=== PATIENT | female | born 1985 | race Caucasian/White ===

== ENCOUNTER 2016-06-29 11:41 | Emergency (ER) | payer MEDICAID, OTHER ==
[2016-06-29] VITALS (8 sets, daily range): BP systolic 116–168; BP diastolic 51–101; PULSE 85–115
--- NOTE | 2016-06-29 12:17 | PD ---
HPI Chief Complaint History of preeclampsia last 2 pregnancies, increased blood pressure Date Seen: Jun 29, 2016 Time Seen: 12:00 Travel History International Travel<30 Days: No Contact w/Intl Traveler<30Days: No Known Affected Area: No History of Present Illness HPI 30-year-old 0-3 at 24 weeks and 1 day of gestation, EDC 10/18/16, patient presents to OB ED from 's office for evaluation of increased blood pressure. Patient stated that she has history of preeclampsia in the last 2 pregnancies. Blood pressure in OB ED is 122/80, 128/88. Patient denies headaches, visual disturbances, blurry vision and epigastric pain. She reports presence of movement. She denies leakage of fluid, vaginal bleeding and contractions. care is with Dr. Poon, course is significant for history of bipolar disorder, alcohol-induced mood disorder and history of preeclampsia. Para: 3 : 6 Miscarriage: 2 : 0 History Past Medical History Narrative Medical Signal significant for: Bipolar disorder, alcohol-induced mood disorder, history of overdose, history of preeclampsia previous pregnancies. Obstetric History Obstetric History Spontaneous vaginal delivery 1, section 2, spontaneous 2 Past Surgical History Narrative Surgical section 2 Family History Narrative Family History Significant for diabetes and hypertension Social History Alcohol Use: No Tobacco Use: Yes (patient is a smoker she smokes half a pack a day) Substance Abuse: No Allergies-Medications (Allergen,Severity, Reaction): Coded Allergies: Stadol (Verified Allergy, Severe, ALTERED MENTASL STATUS, 04/21/16) Seroquel (Verified Allergy, Intermediate, Blurred Vision, 04/21/16) Home Meds No Active Prescriptions or Reported Meds Review of Systems Except as stated in HPI: all other systems reviewed are Neg Cardiovascular: Other (increased blood pressure) Psychiatric: Mood Disorder, Other (bipolar disorder, alcohol-induced mood disorder) Physical Exam Narrative GENERAL: Well-nourished, well-developed patient. SKIN: Warm and dry. HEAD: Normocephalic and atraumatic. EYES: No scleral icterus. No injection or drainage. ENT: No nasal drainage noted. Mucous membranes pink. Airway patent. NECK: Supple, trachea midline. No JVD. CARDIOVASCULAR: Regular rate and rhythm without murmurs, gallops, or rubs. RESPIRATORY: Breath sounds equal bilaterally. No accessory muscle use. BREASTS: Bilateral exam showed no masses , no retractions, no nipple discharge. ABDOMEN/GI: Abdomen soft, gravid, non-tender, bowel sounds present, no rebound, no guarding Gravid to 24 weeks size Fundal Height: 24 cm GENITOURINARY: External Genitalia: intact and normal in appearance BUS glands: Normal Cervix: Closed, long, posterior Dilatation: Close Effacement: 30% Station: -3 Presentation: Cephalic Membranes: Intact Uterine Contractions: None FHT's: Category: one Baseline: 140s Reactive: reassuring Variability: Moderate Decels: None EXTREMITIES: No cyanosis or edema. BACK: Nontender without obvious deformity. No CVA tenderness. NEUROLOGICAL: Awake and alert. Motor and sensory grossly within normal limits. Five out of 5 muscle strength in all muscle groups. Normal speech. Data Data Vital Signs Reviewed: Yes Orders Vital Signs (Adult) [id number] AWAKE (06/29/16 12:03) ^ Heart (06/29/16 12:03) Activity Oob Ad Rose (06/29/16 12:03) Complete Blood Count With Diff (06/29/16 12:03) Uric Acid (06/29/16 12:03) Urinalysis - C+S If Indicated (06/29/16 12:03) Ldh Serum (06/29/16 12:03) Protein Creat Ratio, Random Ur (06/29/16 12:03) Comprehensive Metabolic Panel (06/29/16 12:03) MDM Medical Record Reviewed: Yes Diagnosis Diagnosis: Primary Impression: 24 completed weeks of gestation Additional Impression: History of pre-eclampsia in prior , currently Qualified Code: O09.292 - History of pre-eclampsia in prior , currently , second trimester Disposition: DISCHARGE HOME Condition: Stable Scripts No Active Prescriptions or Reported Meds Patient Instructions: General Instructions, Preeclampsia (ED) Additional Instructions: Return to labor and delivery if you have headaches, blurry vision, visual disturbances, epigastric pain, cramping, contractions, leakage of fluids, vaginal bleeding, decreased movement. Drink plenty of fluids. Monitor kick counts. Keep office appointment as scheduled. Departure Forms: Tests/Procedures Jamey uSllivan MD Jun 29, 2016 12:17
[2016-06-29 12:18] LABS: AUTOMATED NEUTROPHIL # 10.1 TH/MM3 (1.8-7.7); BASOPHIL # 0.1 TH/MM3 (0-0.2); BASOPHIL % 0.6 % (0.0-2.0); EOSINOPHIL # 0.5 TH/MM3 (0-0.4); EOSINOPHIL % 3.3 % (0.0-4.0); HEMO FLAGS DIFF FINAL; LYMPH % 18.8 % (9.0-44.0); LYMPHOCYTE # 2.6 TH/MM3 (1.0-4.8); MEAN CELL VOLUME 91.2 FL (80.0-100.0); MEAN CORPUSCULAR HEMOGLOBIN 30.7 PG (27.0-34.0); MEAN CORPUSCULAR HGB CONC 33.6 % (32.0-36.0); MONO % 5.5 % (0.0-8.0); NEUT % 71.8 % (16.0-70.0); PLATELET COUNT 271 TH/MM3 (150-450); RED BLOOD COUNT 3.62 MIL/MM3 (4.00-5.30); RED CELL DISTRIBUTION WIDTH 12.5 % (11.6-17.2)
[2016-06-29 12:23] LABS: BACTERIA, URINE RARE /hpf; BLOOD, URINE NEG (NEG); GLUCOSE,URINE NEG (NEG); KETONE, URINE NEG (NEG); MUCUS URINE FEW /lpf (OCC); NITRITE,URINE NEG (NEG); SQUAMOUS EPITHELIAL CELL URINE 3 /hpf (0-5); URINE COLOR LIGHT-YELLOW (YELLW/STRAW)
[2016-06-29 12:24] LABS: COMMENT (UR) CULT NOT INDICATED; CULTURE IF INDICATED CULT NOT INDICATED
[2016-06-29 12:38] LABS: ANION GAP 7 MEQ/L (5-15); AST (GOT) 5 U/L (15-37); BICARBONATE 24.4 MEQ/L (21.0-32.0); BLOOD UREA NITROGEN 4 MG/DL (7-18); CHLORIDE 107 MEQ/L (98-107); GLOMERULAR FILTRATION RATE 132 ML/MIN (>89); POTASSIUM 4.3 MEQ/L (3.5-5.1); SODIUM (NA) 138 MEQ/L (136-145); URIC ACID 2.9 MG/DL (2.6-6.0)
[2016-06-29 12:41] LABS: ALKALINE PHOSPHATASE 58 U/L (45-117); ALT (GPT) 8 U/L (10-53); LDH SERUM 141 U/L (84-246); TOTAL BILIRUBIN ADULT 0.1 MG/DL (0.2-1.0)
== END 2016-06-29 13:12 | disposition home or self-care (01) ==
LOC: HOBED 11:41
DX: O26.892 Other specified pregnancy related conditions, second trimester (principal); O99.332 Smoking (tobacco) complicating pregnancy, second trimester; F31.9 Bipolar disorder, unspecified; Y90.9 Presence of alcohol in blood, level not specified; F10.94 Alcohol use, unspecified with alcohol-induced mood disorder; Z3A.24 24 weeks gestation of pregnancy
CPT/HCPCS: 36415; 80053; 81001; 82570; 83615; 84156; 84550; 85025

== ENCOUNTER 2016-08-31 10:35 | Emergency (ER) | payer MEDICAID ==
--- NOTE | 2016-08-31 11:17 | PD ---
HPI Travel History International Travel<30 Days: No Contact w/Intl Traveler<30Days: No Known Affected Area: No History of Present Illness HPI This patient is a 31-year-old 4 para 2 103 EDC is October 18, 2016 presently at 33 weeks and 1 day she is a previous 2 and is scheduled for repeat October 11, 2016 she was seen in office today where her blood pressure was found to be 150/90 and she was sent in for a preeclamptic workup The patient has no headaches or visual changes denies any epigastric or right upper quadrant pain No ruptured membranes no vaginal bleeding no contractions the baby is active She's gained approximately 8 pounds over the past 2 weeks care is significant for anemia she failed her one-hour Glucola test however passed the 3 hour Glucola test Also has a smoker's cough History Past Medical History Narrative Medical No known drug allergies denies any major medical problems Obstetric History Obstetric History First baby was born in 2003 female weight 8 lbs. 1 oz. vaginal delivery uncomplicated Second 2007 male infant weight 7 lbs. 14 oz. born at 36 weeks for preeclampsia by Third baby 2010 male weight 7 lbs. 11 oz. born by repeat at 38 weeks also preeclamptic Past Surgical History Narrative Surgical 2 tonsils and adenoids Family History Narrative Family History Hypertension diabetes heart disease Social History Alcohol Use: No Tobacco Use: Yes (half a pack of cigarettes per day) Substance Abuse: No Allergies-Medications (Allergen,Severity, Reaction): Coded Allergies: Stadol (Verified Allergy, Severe, ALTERED MENTASL STATUS, 04/21/16) Seroquel (Verified Allergy, Intermediate, Blurred Vision, 04/21/16) Home Meds No Active Prescriptions or Reported Meds Review of Systems General / Constitutional: Weight Gain Eyes: No: Diploplia, Blurred Vision, Visual changes, Pain, Photophobia, Other HENT: No: Headaches, Vertigo, Dental Difficulties, Lightheadedness, Other Cardiovascular: No: Irregular Rhythm, Chest Pain or Discomfort, Palpitations, Tachycardia, Syncope, Varicosities, Edema, Cyanosis, Other Respiratory: Cough (smoker's cough as per history of present illness) Gastrointestinal: No: Nausea, Vomiting, Diarrhea, Abdominal Pain, Hematemesis, Hematochezia, Constipation, Changes in Bowel Habits, Indigestion, Loss of Appetite, Other Genitourinary: No: Urgency, Frequency, Dysuria, Nocturia, Hematuria, Decreased Urinary Output, Oliguria, Hesitancy, Dribbling, Incontinence, Pelvic Pain, Dyspareunia, Discharge, Menorrhagia, Vaginal Bleeding, Other Neurologic: No: Weakness, Dizziness, Syncope, Focal Abnormalities, Coordination Problem, Headache, Slurred Speech, Seizures, Other Psychiatric: No: Anxiety, Depression, Suicidal Ideations, Disorder of Thought, Mood Disorder, Substance Abuse, Homicidal Ideation, Other Physical Exam Narrative GENERAL: Well-nourished, well-developed patient. Alert oriented 3 and cooperative in no acute distress SKIN: Warm and dry. HEAD: Normocephalic and atraumatic. EYES: No scleral icterus. No injection or drainage. Conjunctiva are pink ENT: No nasal drainage noted. Mucous membranes pink. Mucous membranes are moist Airway patent. NECK: Supple, trachea midline. No JVD. No thyroid enlargement CARDIOVASCULAR: Regular rate and rhythm without murmurs, gallops, or rubs. RESPIRATORY: Breath sounds equal bilaterally. No accessory muscle use. No Rales or rhonchi heard in her lungs ABDOMEN/GI: Gravid consistent with 33 weeks soft nontender no palpable contractions no epigastric or right upper quadrant tenderness no rebound tenderness Gravid to [-] weeks size 33 Fundal Height: [-] GENITOURINARY: Pelvic exam is deferred as patient has no obstetric complaints and has been sent over for preeclamptic workup Membranes: [intact Uterine Contractions: [-]0 FHT's: Category: 1] Baseline: [140-] Reactive: [-] + Variability: [-] Moderate xndw-oz-csom variability Decels: [-] 0 EXTREMITIES: No cyanosis or edema. 2+ reflexes NEUROLOGICAL: Awake and alert. Motor and sensory grossly within normal limits. Five out of 5 muscle strength in all muscle groups. Normal speech. Data Data Vital Signs Reviewed: Yes (blood pressures 131/98 pulse is 96 she is afebrile category 1 tracing) [facility] Medical Record Reviewed: Yes Interpretation(s) 31-year-old at 33 weeks and 1 day Presents with elevated blood pressure Previous 2 Scheduled for repeat October 11, 2016 and tubal ligation Smoker's with cough Narrative Course / MDM BP are 133/76 117/75 lab are normal pro/cr ratio o.24 ua negative for protein will discharge the patient home rest po fluid hydation kick count Plan Plan: External monitoring Blood pressure every 15 minutes CBC CMP uric acid urinalysis creatinine protein ratio By mouth fluid hydration Reevaluation Physician Communication Spoke with Dr. Poon he is aware of the lab results she is aware of the blood pressure states to send the patient home she is to keep her appointment with him in one week Diagnosis Diagnosis: Primary Impression: 33 weeks gestation of Additional Impressions: Previous section PIH ( induced hypertension) Qualified Code: O13.3 - PIH ( induced hypertension), third trimester Smoker Disposition: DISCHARGE HOME Condition: Stable Scripts No Active Prescriptions or Reported Meds Luciana Young MD Aug 31, 2016 11:17
[2016-08-31 11:31] VITALS: BP 133/76; PULSE 87
[2016-08-31 11:38] VITALS: RESP 18
[2016-08-31 11:45] LABS: HEMATOCRIT 32.1 % (35.0-46.0); MEAN CELL VOLUME 87.5 FL (80.0-100.0); MEAN CORPUSCULAR HEMOGLOBIN 30.2 PG (27.0-34.0); MEAN CORPUSCULAR HGB CONC 34.5 % (32.0-36.0); PLATELET COUNT 250 TH/MM3 (150-450); RED BLOOD COUNT 3.66 MIL/MM3 (4.00-5.30); RED CELL DISTRIBUTION WIDTH 12.8 % (11.6-17.2); REVIEW FLAG FINAL; WHITE BLOOD COUNT 16.6 TH/MM3 (4.0-11.0)
[2016-08-31 11:46] LABS: BACTERIA, URINE RARE /hpf; BLOOD, URINE NEG (NEG); GLUCOSE,URINE NEG (NEG); KETONE, URINE NEG (NEG); NITRITE,URINE NEG (NEG); SQUAMOUS EPITHELIAL CELL URINE 2 /hpf (0-5); URINE COLOR LIGHT-YELLOW (YELLW/STRAW)
[2016-08-31 11:48] LABS: COMMENT (UR) CULT NOT INDICATED; CULTURE IF INDICATED CULT NOT INDICATED
[2016-08-31 11:58] VITALS: BP 122/70; PULSE 81
[2016-08-31 12:00] VITALS: BP 138/78; PULSE 75
[2016-08-31 12:11] LABS: ALT (GPT) LESS THAN 6 U/L (10-53); ANION GAP 10 MEQ/L (5-15); AST (GOT) 6 U/L (15-37); BICARBONATE 25.7 MEQ/L (21.0-32.0); BLOOD UREA NITROGEN 7 MG/DL (7-18); CHLORIDE 106 MEQ/L (98-107); GLOMERULAR FILTRATION RATE 110 ML/MIN (>89); POTASSIUM 4.2 MEQ/L (3.5-5.1); SODIUM (NA) 142 MEQ/L (136-145); URIC ACID 3.5 MG/DL (2.6-6.0)
[2016-08-31 12:13] LABS: ALKALINE PHOSPHATASE 72 U/L (45-117); TOTAL BILIRUBIN ADULT 0.2 MG/DL (0.2-1.0)
[2016-08-31 12:15] VITALS: BP 124/85; PULSE 62
[2016-08-31 12:31] VITALS: BP 117/75; PULSE 75
== END 2016-08-31 12:53 | disposition home or self-care (01) ==
LOC: HOBED 10:35
DX: O13.3 Gestational [pregnancy-induced] hypertension without significant proteinuria, third trimester (principal); O34.219 Maternal care for unspecified type scar from previous cesarean delivery; F17.210 Nicotine dependence, cigarettes, uncomplicated; Z3A.33 33 weeks gestation of pregnancy
CPT/HCPCS: 36415; 80053; 81001; 82570; 84156; 84550; 85027

== ENCOUNTER 2016-09-14 11:59 | Emergency (ER) | payer MEDICAID ==
--- NOTE | 2016-09-14 12:15 | PD ---
HPI Travel History International Travel<30 Days: No Contact w/Intl Traveler<30Days: No Known Affected Area: No History of Present Illness HPI This patient is a 31-year-old 4 para 2 103 EDC is October 18, 2016 presently at 35 weeks and 1 day she was seen in the office Dr. Davila today found to have an elevated blood pressure and she was sent in for preeclamptic workup Had a headache earlier today none now no ruptured membranes no vaginal bleeding the baby is active no blurred vision States that the blood pressure in the office was 160/104 patient was seen on August 31 for the same problem however was discharged home after negative workup She is a previous 2 and is scheduled for repeat section October 11, 2016 care with Abnormal one-hour GTT however the three-hour was normal History Past Medical History Medical History: Denies Significant Hx Obstetric History Obstetric History First baby born in 2003 female infant weight 8 lbs. 1 oz. vaginal delivery uncomplicated Second baby born 2007 male infant weight 714 born at 36 weeks for preeclampsia by Third baby born 2010 male weight 7 lbs. 11 oz. born by repeat section she also had preeclampsia with that Past Surgical History Narrative Surgical 2 Tonsils Family History Narrative Family History Hypertension and heart disease Social History Alcohol Use: No Tobacco Use: Yes Substance Abuse: No Allergies-Medications (Allergen,Severity, Reaction): Coded Allergies: Stadol (Verified Allergy, Severe, ALTERED MENTASL STATUS, 04/21/16) Seroquel (Verified Allergy, Intermediate, Blurred Vision, 04/21/16) Home Meds No Active Prescriptions or Reported Meds Review of Systems General / Constitutional: No: Fever, Weight Gain, Weight Loss, Chills, Other Eyes: No: Diploplia, Blurred Vision, Visual changes, Pain, Photophobia, Other HENT: Headaches (she had a headache but it resolved) Cardiovascular: No: Irregular Rhythm, Chest Pain or Discomfort, Palpitations, Tachycardia, Syncope, Varicosities, Edema, Cyanosis, Other Respiratory: No: Cough, Short of Breath, Wheezing, Other Gastrointestinal: No: Nausea, Vomiting, Diarrhea, Abdominal Pain, Hematemesis, Hematochezia, Constipation, Changes in Bowel Habits, Indigestion, Loss of Appetite, Other Genitourinary: No: Urgency, Frequency, Dysuria, Nocturia, Hematuria, Decreased Urinary Output, Oliguria, Hesitancy, Dribbling, Incontinence, Pelvic Pain, Dyspareunia, Discharge, Menorrhagia, Vaginal Bleeding, Other Neurologic: No: Weakness, Dizziness, Syncope, Focal Abnormalities, Coordination Problem, Headache, Slurred Speech, Seizures, Other Physical Exam Narrative GENERAL: Well-nourished, well-developed patient. CARDIOVASCULAR: Regular rate and rhythm without murmurs, gallops, or rubs. RESPIRATORY: Breath sounds equal bilaterally. No accessory muscle use. ABDOMEN/GI: Abdomen soft, non-tender, bowel sounds present, no rebound, no guarding gravid and consistent with stated gestational age Gravid to [-] weeks size 35 Fundal Height: [-] GENITOURINARY: FHT's: Category: [-] 1 Baseline: [-]140 Reactive: [-] + Variability: [-] moderate Decels: [-] 0 EXTREMITIES: No cyanosis or edema. NEUROLOGICAL: Awake and alert. Motor and sensory grossly within normal limits. Five out of 5 muscle strength in all muscle groups. Normal speech. Data Data Vital Signs Reviewed: Yes (140/87 130/89 138/92 last blood pressure 121/75) Orders Vital Signs (Adult) .ON ADMISSION (09/14/16 12:03) ^ Labor Status (09/14/16 12:03) Urinalysis - C+S If Indicated (09/14/16 12:03) ^ Hydration (09/14/16 12:03) Cbc No Diff, Includes Plts (09/14/16 12:03) Comprehensive Metabolic Panel (09/14/16 12:03) Uric Acid (09/14/16 12:03) Protein Creat Ratio, Random Ur (09/14/16 12:03) MDM Medical Record Reviewed: Yes Interpretation(s) 31-year-old at 35 weeks 1 day Previous 2 Scheduled for repeat section on October 11 -induced hypertension with a history of preeclampsia Smoker Narrative Course / MDM Laboratory data is negative No protein in the urine We'll discharge patient home begin a 24-hour urine for protein and creatinine She is to return it tomorrow where she will have her blood pressure recheck with Dr. Poon Plan External monitoring By mouth fluid hydration Blood pressure every 15 minutes left tilt CBC CMP uric acid urinalysis protein creatinine ratio Reevaluation Diagnosis Diagnosis: Primary Impression: 35 weeks gestation of Additional Impression: induced hypertension Qualified Code: O13.3 - induced hypertension, third trimester Disposition: DISCHARGE HOME Condition: Stable Scripts No Active Prescriptions or Reported Meds Luciana Young MD Sep 14, 2016 12:15
[2016-09-14 12:19] VITALS: BP 160/109; PULSE 101
[2016-09-14 12:22] VITALS: RESP 18; TEMP 98.2
[2016-09-14 12:31] VITALS: BP 140/87; PULSE 89
[2016-09-14 12:35] LABS: HEMATOCRIT 33.4 % (35.0-46.0); MEAN CORPUSCULAR HEMOGLOBIN 29.3 PG (27.0-34.0); MEAN CORPUSCULAR HGB CONC 33.3 % (32.0-36.0); PLATELET COUNT 271 TH/MM3 (150-450); RED CELL DISTRIBUTION WIDTH 13.1 % (11.6-17.2); REVIEW FLAG FINAL; WHITE BLOOD COUNT 13.3 TH/MM3 (4.0-11.0)
[2016-09-14 12:45] VITALS: BP 130/89; PULSE 87
[2016-09-14 12:53] LABS: ALT (GPT) 7 U/L (10-53); ANION GAP 9 MEQ/L (5-15); AST (GOT) 10 U/L (15-37); BICARBONATE 22.5 MEQ/L (21.0-32.0); BLOOD UREA NITROGEN 7 MG/DL (7-18); BLOOD, URINE NEG (NEG); CHLORIDE 109 MEQ/L (98-107); COMMENT (UR) CULT NOT INDICATED; CULTURE IF INDICATED CULT NOT INDICATED; GLOMERULAR FILTRATION RATE 112 ML/MIN (>89); GLUCOSE,URINE NEG (NEG); KETONE, URINE NEG (NEG); MUCUS URINE FEW /lpf (OCC); NITRITE,URINE NEG (NEG); POTASSIUM 4.4 MEQ/L (3.5-5.1); SODIUM (NA) 140 MEQ/L (136-145); SQUAMOUS EPITHELIAL CELL URINE 2 /hpf (0-5); URIC ACID 3.8 MG/DL (2.6-6.0); URINE COLOR LIGHT-YELLOW (YELLW/STRAW)
[2016-09-14 12:55] LABS: ALKALINE PHOSPHATASE 87 U/L (45-117); TOTAL BILIRUBIN ADULT 0.2 MG/DL (0.2-1.0)
[2016-09-14 13:00] VITALS: BP 138/92; PULSE 87
== END 2016-09-14 14:00 | disposition home or self-care (01) ==
LOC: HOBED 11:59
DX: O13.3 Gestational [pregnancy-induced] hypertension without significant proteinuria, third trimester (principal); Z3A.35 35 weeks gestation of pregnancy
CPT/HCPCS: 59025; 80053; 81001; 82570; 84156; 84550; 85027

== ENCOUNTER 2016-09-17 10:40 | Emergency (ER) | payer MEDICAID ==
[2016-09-17] VITALS (9 sets, daily range): BP systolic 123–143; BP diastolic 82–107; PULSE 86–94; RESP 18
[2016-09-17] MEDS ORDERED: CALNTAB (11:06)
[2016-09-17] MEDS ORDERED: FERR1TAB36 PO (11:07)
[2016-09-17 11:33] LABS: HEMATOCRIT 31.5 % (35.0-46.0); MEAN CELL VOLUME 86.8 FL (80.0-100.0); MEAN CORPUSCULAR HEMOGLOBIN 29.4 PG (27.0-34.0); MEAN CORPUSCULAR HGB CONC 33.8 % (32.0-36.0); PLATELET COUNT 251 TH/MM3 (150-450); RED BLOOD COUNT 3.63 MIL/MM3 (4.00-5.30); RED CELL DISTRIBUTION WIDTH 12.8 % (11.6-17.2); REVIEW FLAG FINAL; WHITE BLOOD COUNT 13.7 TH/MM3 (4.0-11.0)
[2016-09-17 11:39] LABS: BLOOD, URINE NEG (NEG); COMMENT (UR) CULT NOT INDICATED; CULTURE IF INDICATED CULT NOT INDICATED; GLUCOSE,URINE NEG (NEG); KETONE, URINE NEG (NEG); NITRITE,URINE NEG (NEG); SQUAMOUS EPITHELIAL CELL URINE 2 /hpf (0-5); URINE COLOR LIGHT-YELLOW (YELLW/STRAW)
--- NOTE | 2016-09-17 11:39 | PD ---
HPI Chief Complaint Elevated BP in the office, 176/118, 170/110 Date Seen: Sep 17, 2016 Time Seen: 11:15 Travel History International Travel<30 Days: No Contact w/Intl Traveler<30Days: No Known Affected Area: No History of Present Illness HPI 31y/o , IUP at 35.4 care uncomplicated per patient report except by some intermittent elevated BP recently in the office Patient presents from the office with elevated BP on 2 separate recordings of 176/118 and 170/110. She reports she had elevated BP at the office 3d ago as well and was sent for evaluation. In the [facility], her BP was 160/109 but improved to 138/92. She had normal platelet count, PC ratio 0.25, and normal LFTs. She reports that she had a STEINBERG for "a couple of days" earlier this week, but denies any STEINBERG at this time. She denies any N/V, F/C. She denies any RUQ or epigastric pain, she denies any visual changes. She reports good FM. She denies any LOF or VB. She denies any painful ctx or cramping. She has no other ob complaints today. She reports occasional swelling but none today. Para: 2 : 6 History Past Medical History Medical History: Denies Significant Hx Obstetric History Obstetric History x2 Past Surgical History Narrative Surgical Tonsillectomy Family History Narrative Family History HTN DM Lung CA Social History Alcohol Use: No Tobacco Use: Yes Substance Abuse: No Allergies-Medications (Allergen,Severity, Reaction): Coded Allergies: Stadol (Verified Allergy, Severe, ALTERED MENTASL STATUS, 09/17/16) Seroquel (Verified Allergy, Intermediate, Blurred Vision, 09/17/16) Home Meds Reported Medications Ferrous Sulfate (Iron)325 Mg [id number] Mg PO DAILY Ref 0 Take 09/17/16 Vitamin (Calna)1 Tab Tab 09/17/16 Review of Systems Except as stated in HPI: all other systems reviewed are Neg Physical Exam Narrative GENERAL: Well-nourished, well-developed patient. SKIN: Warm and dry. HEAD: Normocephalic and atraumatic. EYES: No scleral icterus. No injection or drainage. ENT: No nasal drainage noted. Mucous membranes pink. Airway patent. NECK: Supple, trachea midline. No JVD. CARDIOVASCULAR: Regular rate and rhythm without murmurs, gallops, or rubs. RESPIRATORY: Breath sounds equal bilaterally. No accessory muscle use. BREASTS: Deferred ABDOMEN/GI: Abdomen soft, non-tender, bowel sounds present, no rebound, no guarding GENITOURINARY: Deferred FHT's: Category: [1] Baseline: [120s] Reactive: [Y] Variability: [moderate] with good accels Decels: [none] No regular ctx EXTREMITIES: No cyanosis or edema. BACK: Nontender without obvious deformity. No CVA tenderness. NEUROLOGICAL: Awake and alert. Motor and sensory grossly within normal limits. Five out of 5 muscle strength in all muscle groups. Normal speech. Psych: grossly normal memory, affect, rest grossly normal MS grossly normal ROM, gait Data Data Orders Vital Signs (Adult) .ON ADMISSION (09/17/16 11:22) ^ Labor Status (09/17/16 11:22) Urinalysis - C+S If Indicated (09/17/16 11:22) ^ Non Stress Test (09/17/16 11:22) Cbc No Diff, Includes Plts (09/17/16 11:22) Comprehensive Metabolic Panel (09/17/16 11:22) Uric Acid (09/17/16 11:22) Protein Creat Ratio, Random Ur (09/17/16 11:24) MDM Interpretation(s) 31y/o , IUP at 35.4 Plan A/P: 31y/o 1. IUP at 35.4 2. Mild preeclampsia: BP elevated BP in the office today. Patient had elevated BP in the office earlier this week (09/14/16) with normal evaluation in the [facility] , evaluation performed today. Labs reviewed, BP improved and stable overall with serial BP here, 24h urine 301 (collected on 09/15/16). Dr. Poon hand delivered 24h urine results; we discussed the ximena rand results and he spoke with the patient. Will d/c home as per discussion with Dr. Poon with strict preeclampsia precautions. Modified bedrest. 3. No evidence of PTL, strict PTL precautions 4. wellbeing: reassuring testing with reactive NST. FHR reassuring and appropriate for gestational age. FKC daily. 5. Betamethasone for FLM in prematurity as per Dr. Poon. Return for second dose in 24h, Rx given. 6. F/U for repeat BP check in office in 2-3d or sooner if needed. Diagnosis Diagnosis: Primary Impression: PIH ( induced hypertension) Qualified Code: O13.3 - PIH ( induced hypertension), third trimester Disposition: 01 DISCHARGE HOME Condition: Good Patient Instructions: General Instructions, Abdominal Pain in (ED), Movement (ED), Early Labor Signs (ED) Additional Instructions: Preeclampsia precautions Departure Forms: Tests/Procedures Holly Abraham MD Sep 17, 2016 11:39
[2016-09-17 11:45] LABS: ANION GAP 8 MEQ/L (5-15); AST (GOT) 8 U/L (15-37); BICARBONATE 24.3 MEQ/L (21.0-32.0); BLOOD UREA NITROGEN 8 MG/DL (7-18); CHLORIDE 107 MEQ/L (98-107); GLOMERULAR FILTRATION RATE 118 ML/MIN (>89); POTASSIUM 4.1 MEQ/L (3.5-5.1); SODIUM (NA) 139 MEQ/L (136-145); URIC ACID 4.3 MG/DL (2.6-6.0)
[2016-09-17 11:48] LABS: ALKALINE PHOSPHATASE 87 U/L (45-117); ALT (GPT) 7 U/L (10-53); TOTAL BILIRUBIN ADULT 0.3 MG/DL (0.2-1.0)
[2016-09-17] MEDS ORDERED: BETAMETHASONE SOD PHOS/ACETATE SUSP 30 MG/5 ML VIAL IM ONE (14:00)
== END 2016-09-17 14:13 | disposition home or self-care (01) ==
LOC: HOBED 10:40
DX: O13.3 Gestational [pregnancy-induced] hypertension without significant proteinuria, third trimester (principal); O14.03 Mild to moderate pre-eclampsia, third trimester
CPT/HCPCS: 59025; 80053; 81001; 82570; 84156; 84550; 85027; 96372; 99284; J0702

== ENCOUNTER → 2016-09-18 | Outpatient (CLI) | payer MEDICAID ==
[~2016-09-18] MED LIST: BETAMETHASONE SOD PHOS/ACETATE SUSP 30 MG/5 ML VIAL IM ONE; CALNTAB; FERR1TAB36 PO; IBUP-232 PO; MAGNESIUM SULFATE 4 GM PREMIX 100 ML ONE; MAGNESIUM SULFATE 40 GM PREMIX 1,000 ML ONE; MORPHINE SULFATE PF 5 MG/10 ML VIAL ONE; OXYC1TAB63 PO; fentaNYL CITRATE 250 MCG/5 ML AMP ONE
== END ==
LOC: HOBED 15:06
PROVIDERS: ATTEND Obstetrics & Gynecology Maternal & Fetal Medicine
DX: O13.3 Gestational [pregnancy-induced] hypertension without significant proteinuria, third trimester (principal); Z3A.00 Weeks of gestation of pregnancy not specified
CPT/HCPCS: 96372

== ENCOUNTER 2016-09-21 10:37 | Inpatient (IN) | payer MEDICAID ==
[2016-09-21] VITALS (48 sets, daily range): BP systolic 96–163; BP diastolic 45–97; PULSE 67–92; RESP 18–20; TEMP 97.7–98.6; O2SAT 97–100
[~2016-09-21 10:37] MED LIST changes: -BETAMETHASONE SOD PHOS/ACETATE SUSP 30 MG/5 ML VIAL IM ONE; -IBUP-232 PO; -MAGNESIUM SULFATE 4 GM PREMIX 100 ML ONE; -MAGNESIUM SULFATE 40 GM PREMIX 1,000 ML ONE; -MORPHINE SULFATE PF 5 MG/10 ML VIAL ONE; -OXYC1TAB63 PO; -fentaNYL CITRATE 250 MCG/5 ML AMP ONE
[2016-09-21] MEDS ORDERED: LIDOCAINE HCL 1% 50 ML VIAL I-DERMAL PRN (11:15)
[2016-09-21] MEDS ORDERED: SODIUM CHLORID 0.9% 500 ML INJ 500 ML IV PRN (11:15)
[2016-09-21] MEDS ORDERED: NIFEdipine 10 MG CAP PO PRN ×5 (11:15→15:00)
[2016-09-21] MEDS ORDERED: CALCIUM GLUCONATE 10% 1 GM/10 ML VIAL IV PUSH PRN ×2 (11:15→14:45)
[2016-09-21] MEDS ORDERED: SODIUM CHLORIDE 0.9% FLUSH 10 ML FLUSH IV FLUSH PRN ×2 (11:15→14:30)
[2016-09-21] MEDS ORDERED: NIFEdipine 10 MG CAP ONE (11:15)
[2016-09-21] MEDS ORDERED: LACTATED RINGER'S 1000 ML INJ 1,000 ML IV SCH ×2 (11:15→12:01)
[2016-09-21] MEDS ORDERED: LACTATED RINGER'S 1000 ML INJ 1,000 ML IV ONE (11:31)
[2016-09-21] MEDS ORDERED: OXYTOCIN 10 UNIT/ML AMP ONE (11:32)
[2016-09-21] MEDS ORDERED: SODIUM CHLOR 0.9% 1000 ML INJ 1,000 ML IV PRN (11:35)
[2016-09-21 11:39] LABS: AUTOMATED NEUTROPHIL # 10.9 TH/MM3 (1.8-7.7); BASOPHIL # 0.2 TH/MM3 (0-0.2); BASOPHIL % 1.2 % (0.0-2.0); EOSINOPHIL # 0.2 TH/MM3 (0-0.4); EOSINOPHIL % 1.5 % (0.0-4.0); HEMATOCRIT 29.9 % (35.0-46.0); LYMPH % 19.9 % (9.0-44.0); LYMPHOCYTE # 3.2 TH/MM3 (1.0-4.8); MEAN CORPUSCULAR HEMOGLOBIN 29.9 PG (27.0-34.0); MEAN CORPUSCULAR HGB CONC 34.4 % (32.0-36.0); MONO % 9.2 % (0.0-8.0); NEUT % 68.2 % (16.0-70.0); PLATELET COUNT 241 TH/MM3 (150-450); RED BLOOD COUNT 3.44 MIL/MM3 (4.00-5.30); RED CELL DISTRIBUTION WIDTH 12.9 % (11.6-17.2)
--- NOTE | 2016-09-21 11:49 | PD ---
HPI Chief Complaint high blood pressure, sent from Dr. Poon's clinic Date Seen: Sep 21, 2016 (Eloy Hammond MD R2) Travel History International Travel<30 Days: No Contact w/Intl Traveler<30Days: No (Eloy Hammond MD R2) History of Present Illness HPI Ms. Guevara is a 31-year-old ?3 at 36 1/7 weeks (BRIAN 10/18/2016) who presents per instructions from Dr. Poon's clinic due to elevated BP today. Patient reports history of preeclampsia and hypertension during current gestation. [Patient last seen 09/17 at OB ED due to SBP ~170; pressures decreased spontaneously w/o need for antihypertensives. CBC, CMP, UA, uric acid reassuring at this time. Patient has received 2 doses of Betamethasone]. Patient states that she has felt that she has been doing well thus far this but that she may be beginning to have increased headaches. Patient reports mild headache and mild swelling of extremities for the past several weeks, but denies severe headache, acute visual changes, shortness of breath, nausea/vomiting, dysuria. Patient reports normal movement. Patient denies vaginal discharge, vaginal bleeding, or loss of vaginal fluid. Patient denies abdominal pain; she reports occasional/irregular contractions. Patient states that she has not needed any hypertensive thus far this . She reports that she has been taking aspirin during gestational period. Patient reports that she is GBS positive. Patient smokes approximately 2 cigarettes/day. Patient reports history of anemia during current gestation that she takes iron. Patient reports distant history of bipolar disorder but that she is not treated medically at this time. Patient reports her last ultrasound was at approximately 25 weeks gestation and did not show abnormalities with exception of small size. Para: 3 : 6 (Eloy Hammond MD R2) History Past Medical History Narrative Medical PIH Anemia Tobacco abuse Bipolar disorder (Eloy Hammond MD R2) Obstetric History Obstetric History ?3 Term vaginal delivery 13 years ago 9 years ago- induced for PIH, arrest 5 years ago- repeat (Eloy Hammond MD R2) Past Surgical History Narrative Surgical CS 2 Tonsil/adenoids (Eloy Hammond MD R2) Family History Narrative Family History Diabetes, hypertension (Eloy Hammond MD R2) Social History Narrative Social History Patient smokes approximately 23 cigarettes a day. No reported drinking or substance abuse Patient feels safe at home Alcohol Use: No Tobacco Use: Yes Substance Abuse: No (Eloy Hammond MD R2) Allergies-Medications (Allergen,Severity, Reaction): Coded Allergies: Stadol (Verified Allergy, Severe, ALTERED MENTASL STATUS, 09/21/16) Seroquel (Verified Allergy, Intermediate, Blurred Vision, 09/21/16) Home Meds Reported Medications Ferrous Sulfate (Iron)325 Mg Ipd154 Mg PO DAILY Ref 0 Take 09/17/16 Vitamin (Calna)1 Tab Tab 09/17/16 Review of Systems General / Constitutional: No: Fever, Chills Eyes: Blurred Vision (chronic for months) HENT: Headaches (mild) Cardiovascular: No: Chest Pain or Discomfort Respiratory: No: Short of Breath Gastrointestinal: No: Nausea, Vomiting, Abdominal Pain Genitourinary: No: Dysuria (Eloy Hammond MD R2) Physical Exam Vitals on admission: BP 174/101 HR 102 Repeat 167/106 Following 10 MG Procardia 182/98 Narrative GENERAL: Well-nourished, well-developed patient. SKIN: Warm and dry. HEAD: Normocephalic and atraumatic. EYES: No scleral icterus. No injection or drainage. ENT: No nasal drainage noted. Mucous membranes pink. Airway patent. NECK: No lymphadenopathy or thyromegaly CARDIOVASCULAR: Regular rate and rhythm without murmurs. Normal peripheral perfusion RESPIRATORY: CTAB, normal rate ABDOMEN/GI: Abdomen soft, non-tender, bowel sounds present, no rebound, no guarding Gravid EXTREMITIES: No cyanosis or edema. BACK: Nontender without obvious deformity. No CVA tenderness. NEUROLOGICAL: Awake and alert. Motor and sensory function grossly within normal limits. GENITOURINARY: Not examined Membranes: Intact Uterine Contractions: irritability FHT's: Category: 1 Baseline: 140 Reactive: Y Variability: Mod Decels: None (Eloy Hammond MD R2) Data Data Vital Signs Reviewed: Yes (Eloy Hammond MD R2) MDM Medical Record Reviewed: Yes Narrative Course / MDM 31-year-old ?3 at 36 1/7 weeks (BRIAN 10/18/2016) -Category 1 rhythm -HTN Impression: Currently suspect severe gestational hypertension (SBP 170/180's on multiple occasions). refractory to 10mg Procardia. CBC, CMP, Uric acid, UA reassuring as of 09/17. Prior PIH/Preeclampsia -GBS+ -s/p CSx2 -Has received betamethasone 2 (09/17) -Tobacco abuse Plan: Case discussed between Dr. Rodney and Dr. Poon; attendings agreed in diagnosis of severe gestational hypertension and that and maternal morbidity would be decreased with section performed today. Keep nothing by mouth for planned section today Type and screen ordered We'll repeat preeclampsia labs We'll start IVF Plan for section this afternoon Seen and discussed with Dr. Rodney (Eloy Hammond MD R2) Collaborating MD Comments Patient will be admitted with severe gestational hypertension. Finished a course of betamethasone last Tue/Tue. Plan for repeat . (Alejandrina Rodney MD) Eloy Hammond MD R2 Sep 21, 2016 11:49 Alejandrina Rodney MD Sep 21, 2016 13:04
[2016-09-21 11:50] LABS: HEMO FLAGS AUTO DIFF
[2016-09-21 11:53] LABS: BACTERIA, URINE RARE /hpf; BLOOD, URINE NEG (NEG); COMMENT (UR) CULTURE INDICATED; CULTURE IF INDICATED CULTURE INDICATED; GLUCOSE,URINE NEG (NEG); KETONE, URINE NEG (NEG); NITRITE,URINE NEG (NEG); SQUAMOUS EPITHELIAL CELL URINE 3 /hpf (0-5); URINE COLOR LIGHT-YELLOW (YELLW/STRAW)
[2016-09-21 12:05] LABS: ALKALINE PHOSPHATASE 88 U/L (45-117); ALT (GPT) 6 U/L (10-53); ANION GAP 11 MEQ/L (5-15); AST (GOT) 8 U/L (15-37); BICARBONATE 22.9 MEQ/L (21.0-32.0); BLOOD UREA NITROGEN 8 MG/DL (7-18); CHLORIDE 106 MEQ/L (98-107); GLOMERULAR FILTRATION RATE 104 ML/MIN (>89); POTASSIUM 3.6 MEQ/L (3.5-5.1); SODIUM (NA) 140 MEQ/L (136-145); TOTAL BILIRUBIN ADULT 0.2 MG/DL (0.2-1.0); URIC ACID 4.3 MG/DL (2.6-6.0)
[2016-09-21] MEDS ORDERED: LABETALOL HCL 100 MG/20 ML VIAL IV PUSH PRN (12:15)
[2016-09-21] MEDS ORDERED: ceFAZolin 2 GM PREMIX 50 ML IV ONE (12:15)
--- NOTE | 2016-09-21 12:20 | HHI.HP ---
History & Physical H&P HPI Chief Complaint high blood pressure, sent from Dr. Poon's clinic Date Seen: Sep 21, 2016 Travel History International Travel<30 Days: No Contact w/Intl Traveler<30Days: No History of Present Illness HPI Ms. Guevara is a 31-year-old ?3 at 36 1/7 weeks (BRIAN 10/18/2016) who presents per instructions from Dr. Poon's clinic due to elevated BP today. Patient reports history of preeclampsia and hypertension during current gestation. [Patient last seen 09/17 at [facility] ED due to SBP ~170; pressures decreased spontaneously w/o need for antihypertensives. CBC, CMP, UA, uric acid reassuring at this time. Patient has received 2 doses of Betamethasone]. Patient states that she has felt that she has been doing well thus far this but that she may be beginning to have increased headaches. Patient reports mild headache and mild swelling of extremities for the past several weeks, but denies severe headache, acute visual changes, shortness of breath, nausea/vomiting, dysuria. Patient reports normal movement. Patient denies vaginal discharge, vaginal bleeding, or loss of vaginal fluid. Patient denies abdominal pain; she reports occasional/irregular contractions. Patient states that she has not needed any hypertensive thus far this . She reports that she has been taking aspirin during gestational period. Patient reports that she is GBS positive. Patient smokes approximately 2 cigarettes/day. Patient reports history of anemia during current gestation that she takes iron. Patient reports distant history of bipolar disorder but that she is not treated medically at this time. Patient reports her last ultrasound was at approximately 25 weeks gestation and did not show abnormalities with exception of small size. Para: 3 : 6 History Past Medical History Narrative Medical PIH Anemia Tobacco abuse Bipolar disorder Obstetric History Obstetric History ?3 Term vaginal delivery 13 years ago 9 years ago- induced for PIH, arrest 5 years ago- repeat Past Surgical History Narrative Surgical CS 2 Tonsil/adenoids Family History Narrative Family History Diabetes, hypertension Social History Narrative Social History Patient smokes approximately 23 cigarettes a day. No reported drinking or substance abuse Patient feels safe at home Alcohol Use: No Tobacco Use: Yes Substance Abuse: No Allergies-Medications (Allergen,Severity, Reaction): Coded Allergies: Stadol (Verified Allergy, Severe, ALTERED MENTASL STATUS, 09/17/16) Seroquel (Verified Allergy, Intermediate, Blurred Vision, 09/17/16) Home Meds Reported Medications Ferrous Sulfate (Iron)325 Mg Tig912 Mg PO DAILY Ref 0 Take 09/17/16 Vitamin (Calna)1 Tab Tab 09/17/16 Review of Systems General / Constitutional: No: Fever, Chills Eyes: Blurred Vision (chronic for months) HENT: Headaches (mild) Cardiovascular: No: Chest Pain or Discomfort Respiratory: No: Short of Breath Gastrointestinal: No: Nausea, Vomiting, Abdominal Pain Genitourinary: No: Dysuria Physical Exam Vitals on admission: BP 174/101 HR 102 Repeat 167/106 Following 10 MG Procardia 182/98 Narrative GENERAL: Well-nourished, well-developed patient. SKIN: Warm and dry. HEAD: Normocephalic and atraumatic. EYES: No scleral icterus. No injection or drainage. ENT: No nasal drainage noted. Mucous membranes pink. Airway patent. NECK: No lymphadenopathy or thyromegaly CARDIOVASCULAR: Regular rate and rhythm without murmurs. Normal peripheral perfusion RESPIRATORY: CTAB, normal rate ABDOMEN/GI: Abdomen soft, non-tender, bowel sounds present, no rebound, no guarding Gravid EXTREMITIES: No cyanosis or edema. BACK: Nontender without obvious deformity. No CVA tenderness. NEUROLOGICAL: Awake and alert. Motor and sensory function grossly within normal limits. GENITOURINARY: Not examined Membranes: Intact Uterine Contractions: irritability FHT's: Category: 1 Baseline: 140 Reactive: Y Variability: Mod Decels: None Data Data Vital Signs Reviewed: Yes MDM Medical Record Reviewed: Yes Narrative Course / MDM 31-year-old ?3 at 36 1/7 weeks (BRIAN 10/18/2016) -Category 1 rhythm -HTN Impression: Currently suspect severe gestational hypertension (SBP 170/180's on multiple occasions). refractory to 10mg Procardia. CBC, CMP, Uric acid, UA reassuring as of 09/17. Prior PIH/Preeclampsia -GBS+ -s/p CSx2 -Has received betamethasone 2 (09/17) -Tobacco abuse Plan: Case discussed between Dr. Rodney and Dr. Poon; attendings agreed in diagnosis of severe gestational hypertension and that and maternal morbidity would be decreased with section performed today. Keep nothing by mouth for planned section today Type and screen ordered We'll repeat preeclampsia labs We'll start IVF Plan for section this afternoon Seen and discussed with Dr. Ronel Hammond,Eloy Johnson MD R2 Sep 21, 2016 12:20
[2016-09-21 12:21] LABS: PLATELET ESTIMATE SMEAR NORMAL (NORMAL); PLATELET MORPHOLOGY ENLARGED (NORMAL); SCAN/DIFF AUTO DIFF CONFIRMED
[2016-09-21] MEDS ORDERED: EPIDURAL-DIPHENHYDRAMINE HCL 50 MG CAP PO PRN (12:55)
[2016-09-21] MEDS ORDERED: EPIDURAL-NALOXONE HCL 0.4 MG/ML AMP IV PRN (12:55)
[2016-09-21] MEDS ORDERED: EPIDURAL-DIPHENHYDRAMINE HCL 50 MG/ML VIAL IV PUSH PRN (12:55)
[2016-09-21] MEDS ORDERED: EPIDURAL-DO NOT ADMINISTER ANTICOAGULANTS PRN (12:55)
[2016-09-21] MEDS ORDERED: EPIDURAL-NO SYSTEMIC NARCOTICS PRN (12:55)
[2016-09-21] MEDS ORDERED: CITRIC ACID-SODIUM CITRATE LIQ 30 ML UDC PO SCH (13:15)
[2016-09-21] MEDS ORDERED: MORPHINE SULFATE PF 5 MG/10 ML VIAL ONE (14:26)
[2016-09-21] MEDS ORDERED: ONDANSETRON HCL 4 MG/2 ML VIAL ONE (14:27)
[2016-09-21] MEDS ORDERED: ONDANSETRON HCL 4 MG/2 ML VIAL IV PUSH PRN (14:30)
[2016-09-21] MEDS ORDERED: SIMETHICONE 80 MG CHEWABLE TAB PO PRN (14:30)
[2016-09-21] MEDS ORDERED: OXYTOCIN 30 UNITS-500ML PREMIX 500 ML IV ONE ×2 (14:30)
[2016-09-21] MEDS ORDERED: ACETAMINOPHEN 1000 MG/100 ML VIAL IV ONE ×2 (14:30→16:27)
[2016-09-21] MEDS ORDERED: oxyCODONE/ACETAMINOPHEN 5 MG/325 MG TAB PO PRN (14:30)
[2016-09-21] MEDS ORDERED: HYDROmorphone HCL PF 2 MG/ML VIAL ONE (14:34)
[2016-09-21] MEDS ORDERED: MAGNESIUM SULFATE 4 GM PREMIX 100 ML IV ONE (14:45)
[2016-09-21 15:05] LABS: AMPHETAMINE, URINE NEG (NEG); BARBITURATES, URINE NEG (NEG); COCAINE, URINE NEG (NEG)
[2016-09-21] MEDS: MAGNESIUM SULFATE 40 GM PREMIX 1,000 ML IV SCH (15:14)
[2016-09-21] MEDS ORDERED: HYDROmorphone HCL PF 1 MG/ML VIAL IV PRN (15:15)
[2016-09-21] MEDS: LACTATED RINGER'S 1000 ML INJ 1,000 ML IV SCH (19:29)
[2016-09-21] MEDS ORDERED: SODIUM CHLORIDE 0.9% FLUSH 10 ML FLUSH IV FLUSH SCH ×2 (21:00)
[2016-09-21] MEDS ORDERED: ZOLPIDEM TARTRATE 5 MG TAB PO PRN (21:00)
[2016-09-22] VITALS (18 sets, daily range): BP systolic 94–146; BP diastolic 31–89; PULSE 64–86; RESP 16–20; TEMP 97.8–97.9
[2016-09-22] MEDS ORDERED: OXYTOCIN 30 UNITS-500ML PREMIX 500 ML IV PRN (00:30)
[2016-09-22 06:01] LABS: AUTOMATED NEUTROPHIL # 12.2 TH/MM3 (1.8-7.7); BASOPHIL # 0.1 TH/MM3 (0-0.2); BASOPHIL % 0.3 % (0.0-2.0); EOSINOPHIL # 0.2 TH/MM3 (0-0.4); EOSINOPHIL % 1.3 % (0.0-4.0); HEMATOCRIT 27.4 % (35.0-46.0); HEMO FLAGS DIFF FINAL; LYMPH % 15.3 % (9.0-44.0); LYMPHOCYTE # 2.4 TH/MM3 (1.0-4.8); MEAN CELL VOLUME 87.5 FL (80.0-100.0); MEAN CORPUSCULAR HEMOGLOBIN 29.7 PG (27.0-34.0); MEAN CORPUSCULAR HGB CONC 33.9 % (32.0-36.0); MONO % 7.2 % (0.0-8.0); NEUT % 75.9 % (16.0-70.0); PLATELET COUNT 217 TH/MM3 (150-450); RED BLOOD COUNT 3.13 MIL/MM3 (4.00-5.30); RED CELL DISTRIBUTION WIDTH 13.1 % (11.6-17.2)
[2016-09-22] MEDS: oxyCODONE/ACETAMINOPHEN 5 MG/325 MG TAB PO PRN ×4 (08:13→20:43)
[2016-09-22] MEDS: DOCUSATE SODIUM 50 MG/SENNA 8.6 MG TAB PO PRN (08:14)
[2016-09-22] MEDS: IBUPROFEN 600 MG TAB PO PRN ×2 (08:14→16:45)
[2016-09-22] MEDS: LACTATED RINGER'S 1000 ML INJ 1,000 ML IV SCH (10:56)
[2016-09-22] MEDS: MAGNESIUM SULFATE 40 GM PREMIX 1,000 ML IV SCH (11:14)
--- NOTE | 2016-09-22 12:11 | HHI.OB ---
Subjective Post Operative Day: 1 Objective Vitals/I&O Vital Signs Date Time Temp Pulse Resp B/P Pulse Ox O2 Delivery O2 Flow Rate FiO2 09/22/16 11:00 67 118/54 09/22/16 10:00 72 136/78 09/22/16 09:15 18 09/22/16 09:15 18 09/22/16 09:00 86 130/83 09/22/16 08:19 97.8 20 09/22/16 08:00 70 145/89 09/22/16 07:00 115/70 09/22/16 06:26 18 09/22/16 06:00 70 18 129/80 09/22/16 05:00 69 09/22/16 05:00 117/72 09/22/16 04:07 97.9 16 09/22/16 04:06 64 114/69 09/22/16 03:03 94/31 09/22/16 03:03 78 09/22/16 01:07 18 09/22/16 01:01 68 136/73 09/21/16 23:00 72 130/74 09/21/16 22:41 98.1 18 09/21/16 22:15 18 09/21/16 22:00 74 133/72 09/21/16 21:15 18 09/21/16 21:01 85 140/91 09/21/16 20:03 98.4 09/21/16 20:02 18 09/21/16 20:00 70 130/82 09/21/16 19:15 18 09/21/16 19:01 71 96/45 09/21/16 18:16 75 127/81 09/21/16 18:15 67 100 09/21/16 18:10 72 99 09/21/16 18:05 76 100 09/21/16 17:55 75 100 09/21/16 17:50 71 100 09/21/16 17:45 68 100 09/21/16 17:30 81 99 09/21/16 17:25 82 99 09/21/16 17:20 78 98 09/21/16 17:15 83 98 09/21/16 17:10 84 97 09/21/16 17:05 83 97 09/21/16 17:01 84 118/66 09/21/16 17:00 86 97 09/21/16 16:55 86 98 09/21/16 16:50 88 97 09/21/16 16:45 92 98 09/21/16 16:40 81 98 09/21/16 16:35 88 98 09/21/16 16:30 83 98 09/21/16 16:25 89 98 09/21/16 16:20 83 97 09/21/16 16:15 88 98 09/21/16 16:10 82 134/77 98 09/21/16 16:10 86 09/21/16 16:05 20 09/21/16 16:03 89 144/75 09/21/16 15:31 80 18 98 09/21/16 15:31 155/89 09/21/16 15:27 97.7 09/21/16 15:20 72 18 163/89 100 09/21/16 15:05 77 18 144/91 99 09/21/16 14:50 72 18 98 09/21/16 14:50 149/88 09/21/16 14:35 99 09/21/16 12:20 92 156/97 09/21/16 12:06 98.6 09/21/16 12:03 18 Result Diagram: 09/22/16 0446 09/21/16 1115 Objective Remarks GENERAL: Well-nourished, well-developed patient. CARDIOVASCULAR: Regular rate and rhythm without murmurs, gallops, or rubs. RESPIRATORY: Breath sounds equal bilaterally. No accessory muscle use. ABDOMEN/GI: Abdomen soft, non-tender, bowel sounds present. Incision: Dressing Clean, dry and intact. Fundus: Firm, non-tender at umbilicus. GENITOURINARY: Light to moderate bleeding, cardenas to bsd yellow urine EXTREMITIES: No cyanosis or edema, non-tender, without signs of DVT. Medications and IVs Current Medications Medications (Trade) Dose Ordered Sig/Radha Route Start Time Stop Time Status Last Admin (Lr 1000 ml Inj) 1,000 ml @ 100 mls/hr Q10H IV 09/21/16 19:29 09/22/16 15:28 09/22/16 10:56 (NS Flush) 2 ml BID IV FLUSH 09/21/16 21:00 (NS Flush) 2 ml UNSCH PRN IV FLUSH 09/21/16 14:30 (Mylicon Chew) 80 mg QID PRN PO 09/21/16 14:30 09/22/16 08:14 (Motrin) 600 mg Q6H PRN PO 09/21/16 14:30 09/22/16 08:14 (Percocet 5-325 Mg) 1 tab Q4H PRN PO 09/21/16 14:30 (Percocet 5-325 Mg) 2 tab Q4H PRN PO 09/21/16 14:30 09/22/16 08:13 (Joana-Colace) 2 tab Q12H PRN PO 09/21/16 14:30 09/22/16 08:14 (Ambien) 5 mg HS PRN PO 09/21/16 21:00 (M-M-R Ii Inj) 0.5 ml ONCE ONCE SQ 09/22/16 16:00 09/22/16 16:01 (Boostrix Inj) 0.5 ml ONCE ONCE IM 09/22/16 16:00 09/22/16 16:01 Ondansetron HCl 4 mg 4 mg Q6H PRN IV PUSH 09/21/16 14:30 (Magnesium Sulfate 40 Gm Premix) 1,000 ml @ 50 mls/hr Q20H IV 09/21/16 15:00 09/22/16 11:14 (Calcium Gluconate Inj) 1 gm UNSCH PRN IV PUSH 09/21/16 14:45 Miscellaneous Information NO SYSTEMIC NARCOTICS TO BE GIVEN FO... UNSCH PRN .XX 09/21/16 12:55 09/22/16 12:54 (Narcan Inj) 0.4 mg UNSCH PRN IV 09/21/16 12:55 09/22/16 12:54 (Benadryl Inj) 25 mg Q6H PRN IV PUSH 09/21/16 12:55 09/22/16 12:54 (Benadryl) 50 mg Q6H PRN PO 09/21/16 12:55 09/22/16 12:54 Miscellaneous Information ALL NURSING DEPARTMENTS UNSCH PRN .XX 09/21/16 12:55 09/22/16 12:54 Assessment/Plan Problem List: (1) PIH ( induced hypertension) Plan: monitor bps (2) Previous section Plan: routine Assessment and Plan POD #1 repeat c section pt doing well on magnesium sulfate 2 grams, bp stable at this time will be transitioning to oral pain medication infant doing well in room routine care Discharge Planning consider dc in 2-3 days Evelyn Miguel Sep 22, 2016 12:11
[2016-09-22] MEDS ORDERED: MEASLES, MUMPS, RUBELLA VACCINE 0.5 ML VIAL SQ ONE (16:00)
[2016-09-22] MEDS ORDERED: DIPHTH/TETANUS/ACEL PERTUSSIS (BOOSTER) 0.5 ML VIAL/PFS IM ONE (16:00)
[2016-09-23] MEDS: IBUPROFEN 600 MG TAB PO PRN ×3 (01:34→16:42)
[2016-09-23] MEDS: oxyCODONE/ACETAMINOPHEN 5 MG/325 MG TAB PO PRN ×5 (01:34→21:11)
[2016-09-23] MEDS ORDERED: fentaNYL CITRATE 250 MCG/5 ML AMP ONE (08:07)
[2016-09-23] MEDS ORDERED: MORPHINE SULFATE PF 5 MG/10 ML VIAL ONE (08:08)
--- NOTE | 2016-09-23 13:37 | MP ---
cc: Lynn ZHU MD DATE OF SURGERY: 09/21/2016 PREOPERATIVE DIAGNOSIS 1. Intrauterine at 36 weeks. 2. Severe preeclampsia. 3. Previous sections. POSTOPERATIVE DIAGNOSIS 1. Intrauterine at 36 weeks. 2. Severe preeclampsia. 3. Previous sections. PROCEDURE Repeat low transverse section. ANESTHESIA Spinal. SURGEON Lynn Zhu MD CARE CENTER MANAGER Camilo Miner, M3 FINDINGS A viable female with good Apgars. The fallopian tubes, uterus and ovaries were normal, posterior cul-de-sac was normal. The lower uterine segment, it was previously scarred down. COMPLICATIONS None. COUNTS Counts were correct. ESTIMATED BLOOD LOSS 500 ccs. FLUIDS Crystalloids. CONDITION The patient tolerated the procedure well and went to the recovery room in good condition. PROCEDURE The patient was taken to the operating room identified by name band and verbally. She was given a spinal anesthetic. A Boyce catheter was inserted. She was prepped and draped for section. The old Pfannenstiel incision was removed and excised completely and the incision was taken down to the fascia. The fascia was taken off the rectus muscle by blunt and sharp dissection. The peritoneum was entered under direct vision without complication. The incision was extended with care to avoid the urinary bladder. A bladder blade was placed and a bladder flap created over the lower uterine segment which was well-developed. The uterus was then scored in a transverse manner along the lower uterine segment and taken down in the midline until the uterine cavity was entered. The incision was extended with the surgeon's fingers. The vertex was grasped and delivered through the incision without difficulty. The hypopharynx and nasopharynx were suctioned. The remainder of the infant was delivered. The cord was doubly clamped and cut and the handed to the resuscitation team that was present. Cord blood was obtained. The placenta was delivered manually without difficulty. The uterus was curettaged twice with a wet lap. The uterine incision was repaired with 2-0 Vicryl a running locking fashion, the second layer imbricating the first. The cul-de-sac and gutters were cleaned of blood and debris with a large amount of irrigation. The uterus was delivered back into the abdomen. The incision was again inspected and was hemostatic. The rectus muscles were reapproximated with 0 Vicryl in an interrupted fashion. The fascia was repaired with 0 Vicryl from lateral to midline bilaterally in a running fashion. The subcutaneous tissue was repaired with 3-0 Vicryl. The skin was repaired with 4-0 Monocryl in a subcuticular manner. Steri-Strips were applied. The wound was sterilely dressed. She tolerated the procedure well and went to the recovery room in good condition. R. MD HENRY Tyler/ADRIANA /2:31 PM /1:18 PM
--- NOTE | 2016-09-23 14:50 | HHI.OB ---
Subjective Post Operative Day: 2 Objective Result Diagram: 09/22/16 0446 09/21/16 1115 Objective Remarks GENERAL: Well-nourished, well-developed patient. CARDIOVASCULAR: Regular rate and rhythm without murmurs, gallops, or rubs. RESPIRATORY: Breath sounds equal bilaterally. No accessory muscle use. ABDOMEN/GI: Abdomen soft, non-tender, bowel sounds present. Incision: Clean, dry and intact. Fundus: Firm, non-tender at umbilicus. GENITOURINARY: Light to moderate bleeding yellow urine EXTREMITIES: No cyanosis or edema, non-tender, without signs of DVT. Medications and IVs Current Medications Medications (Trade) Dose Ordered Sig/Radha Route Start Time Stop Time Status Last Admin (NS Flush) 2 ml BID IV FLUSH 09/21/16 21:00 (NS Flush) 2 ml UNSCH PRN IV FLUSH 09/21/16 14:30 (Mylicon Chew) 80 mg QID PRN PO 09/21/16 14:30 09/22/16 08:14 (Motrin) 600 mg Q6H PRN PO 09/21/16 14:30 09/23/16 08:00 (Percocet 5-325 Mg) 1 tab Q4H PRN PO 09/21/16 14:30 (Percocet 5-325 Mg) 2 tab Q4H PRN PO 09/21/16 14:30 09/23/16 12:45 (Joana-Colace) 2 tab Q12H PRN PO 09/21/16 14:30 09/22/16 08:14 (Ambien) 5 mg HS PRN PO 09/21/16 21:00 Ondansetron HCl 4 mg 4 mg Q6H PRN IV PUSH 09/21/16 14:30 (Magnesium Sulfate 40 Gm Premix) 1,000 ml @ 50 mls/hr Q20H IV 09/21/16 15:00 09/22/16 11:14 (Calcium Gluconate Inj) 1 gm UNSCH PRN IV PUSH 09/21/16 14:45 Assessment/Plan Problem List: (1) PIH ( induced hypertension) Plan: monitor bps (2) Previous section Plan: routine Assessment and Plan POD #2 repeat c section pt doing well bp stable at this time pain well managed oral pain medication infant doing well, needs to pass car seat test routine care Discharge Planning consider dc tomorrow Evelyn Miguel Sep 23, 2016 14:50
[2016-09-23] MEDS: DOCUSATE SODIUM 50 MG/SENNA 8.6 MG TAB PO PRN (16:41)
[2016-09-24] MEDS ORDERED: IBUP-232 PO (07:08)
[2016-09-24] MEDS ORDERED: OXYC1TAB63 PO (07:08)
--- NOTE | 2016-09-24 07:10 | HHI.DCPOC ---
Discharge Care Plan Diagnosis: (1) Pre-eclampsia, severe, delivered (2) IRON DEFICIENCY ANEMIA, UNSPECIFIED (3) Previous section (4) delivery delivered Report Symptoms to Your Doctor -Temperate above 100.5 degrees -Redness, of incision or excessive or foul smelling drainage -Unusual pain or calf pain -Increased vaginal bleeding -Painful or difficulty urinating -Feelings of extreme sadness or anxiety after 2 weeks Goals to Promote Your Health * To prevent worsening of your condition and complications * To maintain your health at the optimal level Directions to Meet Your Goals Take your medications as prescribed Follow your dietary instruction Follow activity as directed Ensure plenty of rest for recovery Drink fluids for hydration Keep your appointments as scheduled Take your immunizations and boosters as scheduled If your symptoms worsen call your PCP, if no PCP go to Urgent Care Center or Emergency Room Smoking is Dangerous to Your Health. Avoid second hand smoke Call the 24-hour crisis hotline for domestic abuse at Lynn Poon MD Sep 24, 2016 07:10
[2016-09-24] MEDS: oxyCODONE/ACETAMINOPHEN 5 MG/325 MG TAB PO PRN ×2 (07:20→11:24)
[2016-09-24] MEDS: IBUPROFEN 600 MG TAB PO PRN (07:21)
[2016-09-24 12:14] LABS: ECSTASY (MDMA) UR NEG (NEG); HEROIN (6-ACETYLMORPHINE) UR NEG (NEG); OBMETHADONE UR NEG (NEG); PHENCYCLIDINE URINE NEG (NEG)
[2016-09-24 12:15] LABS: BATH SALTS (MDPV) UR NEG (NEG); K2 SPICE UR NEG (NEG); OXYCODONE (PERCODAN) NEG (NEG)
--- NOTE | 2016-09-24 12:16 | HHI.DS ---
Admission Date Sep 21, 2016 at 11:22 Discharge Date: Sep 24, 2016 Admitting Diagnosis 36 WEEK IUP SEVERE PIH PREVIOUS C SECTION Diagnosis: (1) delivery delivered Diagnosis: Principal (2) PIH ( induced hypertension) Diagnosis: Principal (3) Anemia Diagnosis: Secondary Delivery Date: Sep 21, 2016 : Repeat Reason: SEVERE PIH REPEAT C SECTION Brief History 36 WEEK WITH SEVERE PIH REPEAT C SECTION Hospital Course REPEAT C SECTION SEVERE PIH MAGNESIUM SULFATE 24 HOUR AFTER DELIVERY BP'S STABLE ROUTINE POST OP CARE Pt Condition on Discharge: Good Discharge Disposition: Discharge Home Discharge Instructions Diet Instructions: As Tolerated, No Restrictions Additional Diet Instructions: Drink at least 8 - 16 oz bottles of water a day Activities You Can Perform: Shower Only-No Bath Activities to Avoid: Prolonged Standing, Strenuous Activity, Sexual Activity Additional Activity Instruc.: No driving until off pain medications Do not lift anything heavier than your baby in an infant carrier Follow up Referrals: B[facility] RUNNER - 1 Week @ [facility] [place] New Medications: Ibuprofen (Ibuprofen) 600 Mg Tab 600 MG PO Q6H Pain Management #30 Ref 1 TAB Oxycodone-Acetaminophen (Oxycodone-Acetaminophen) 5-325 mg Tab 1 TAB PO Q4H moderate pain #30 TAB Continued Medications: Vitamin (Calna) 1 Tab Tab Discontinued Medications: Ferrous Sulfate (Iron) 325 Mg Tab 325 MG PO DAILY Take Nutritional Supplement Ref 0 TAB Evelyn Miguel Sep 24, 2016 12:16
--- NOTE | 2016-09-24 12:23 | HHI.OB ---
Subjective Post Operative Day: 3 Objective Result Diagram: 09/22/16 0446 09/21/16 1115 Objective Remarks GENERAL: Well-nourished, well-developed patient. CARDIOVASCULAR: Regular rate and rhythm without murmurs, gallops, or rubs. RESPIRATORY: Breath sounds equal bilaterally. No accessory muscle use. ABDOMEN/GI: Abdomen soft, non-tender, bowel sounds present. Incision: Clean, dry and intact. Fundus: Firm, non-tender at umbilicus. GENITOURINARY: Light to moderate bleeding yellow urine EXTREMITIES: No cyanosis or edema, non-tender, without signs of DVT. Medications and IVs Current Medications Medications (Trade) Dose Ordered Sig/Radha Route Start Time Stop Time Status Last Admin (NS Flush) 2 ml BID IV FLUSH 09/21/16 21:00 (NS Flush) 2 ml UNSCH PRN IV FLUSH 09/21/16 14:30 (Mylicon Chew) 80 mg QID PRN PO 09/21/16 14:30 09/22/16 08:14 (Motrin) 600 mg Q6H PRN PO 09/21/16 14:30 09/24/16 07:21 (Percocet 5-325 Mg) 1 tab Q4H PRN PO 09/21/16 14:30 (Percocet 5-325 Mg) 2 tab Q4H PRN PO 09/21/16 14:30 09/24/16 11:24 (Joana-Colace) 2 tab Q12H PRN PO 09/21/16 14:30 09/23/16 16:41 (Ambien) 5 mg HS PRN PO 09/21/16 21:00 Ondansetron HCl 4 mg 4 mg Q6H PRN IV PUSH 09/21/16 14:30 (Magnesium Sulfate 40 Gm Premix) 1,000 ml @ 50 mls/hr Q20H IV 09/21/16 15:00 09/22/16 11:14 (Calcium Gluconate Inj) 1 gm UNSCH PRN IV PUSH 09/21/16 14:45 Assessment/Plan Problem List: (1) PIH ( induced hypertension) Plan: monitor bps (2) Previous section Plan: routine Assessment and Plan POD #3 repeat c section pt doing well pain well managed oral pain medication doing well, SHOULD BE OK TO GO HOME TODAY routine care Discharge Planning dc today Evelyn Miguel Sep 24, 2016 12:23
== END 2016-09-24 14:22 | disposition home or self-care (01) | DRG 766 ==
LOC: HOBED 10:37 → H2EB 11:22 → H1EA 09-22 13:59
PROVIDERS: ADMIT Obstetrics & Gynecology; ATTEND Obstetrics & Gynecology
PROC: 10D00Z1 Extraction of Products of Conception, Low, Open Approach (ICD-10-PCS; principal; 2016-09-21)
DX: O13.4 Gestational [pregnancy-induced] hypertension without significant proteinuria, complicating childbirth (principal); O99.334 Smoking (tobacco) complicating childbirth; O99.02 Anemia complicating childbirth; D64.9 Anemia, unspecified; F17.210 Nicotine dependence, cigarettes, uncomplicated; O99.824 Streptococcus B carrier state complicating childbirth; Z3A.36 36 weeks gestation of pregnancy; O34.211 Maternal care for low transverse scar from previous cesarean delivery; Z88.6 Allergy status to analgesic agent; Z88.8 Allergy status to other drugs, medicaments and biological substances; Z37.0 Single live birth
CPT/HCPCS: 80053; 80307; 81001; 84550; 85025; 86850; 86900; 86901; 87086; 88307; 99285; G0481; J0131; J0690; J1170; J2274; J2405; J2590; J3010; J3475; J7120

== ENCOUNTER 2017-12-13 12:30 | Inpatient (IN) | payer MEDICAID ==
[2017-12-13] VITALS (11 sets, daily range): BP systolic 95–113; BP diastolic 55–71; PULSE 53–92; RESP 16–20; TEMP 97.7–99; O2SAT 97–100
[~2017-12-13] VITALS: Ht 170.2 cm; Wt 86.0 kg
[~2017-12-13 12:30] MED LIST changes: +ASPI1TAB57 PO; +DEXAMETHASONE SOD PHOS 4 MG/ML VIAL IV ONE; -FERR1TAB36 PO; +IRON1TAB7 PO; +ONDANSETRON HCL 4 MG/2 ML VIAL IV ONE; +OXYTOCIN 10 UNIT/ML AMP IV ONE; +PHENYLEPH/NS 1000 MCG/10 ML SYR IV ONE; +ePHEDrine/NS 25 MG/5 ML SYRINGE IV ONE
[2017-12-13] MEDS ORDERED: LABETALOL HCL 100 MG/20 ML VIAL IV PUSH PRN ×3 (13:15→13:30)
[2017-12-13 13:28] LABS: HEMATOCRIT 34.4 % (35.0-46.0); MEAN CELL VOLUME 81.6 FL (80.0-100.0); MEAN CORPUSCULAR HEMOGLOBIN 26.1 PG (27.0-34.0); MEAN PLATELET VOLUME 8.8 FL (7.0-11.0); PLATELET COUNT 260 TH/MM3 (150-450); RED BLOOD COUNT 4.21 MIL/MM3 (4.00-5.30); RED CELL DISTRIBUTION WIDTH 19.6 % (11.6-17.2); WHITE BLOOD COUNT 13.7 TH/MM3 (4.0-11.0)
[2017-12-13 13:48] LABS: ALBUMIN 2.6 GM/DL (3.4-5.0); AST (GOT) 9 U/L (15-37); BICARBONATE 25.5 MEQ/L (21.0-32.0); BLOOD UREA NITROGEN 10 MG/DL (7-18); CHLORIDE 103 MEQ/L (98-107); CREATININE 0.68 MG/DL (0.50-1.00); GLOMERULAR FILTRATION RATE 100 ML/MIN (>89); GLUCOSE,RANDOM 100 MG/DL (74-106); SODIUM (NA) 138 MEQ/L (136-145)
[2017-12-13 13:49] LABS: ALT (GPT) 9 U/L (10-53)
[2017-12-13 13:52] LABS: ALKALINE PHOSPHATASE 158 U/L (45-117); TOTAL BILIRUBIN ADULT 0.2 MG/DL (0.2-1.0); TOTAL PROTEIN 7.1 GM/DL (6.4-8.2)
[2017-12-13] MEDS ORDERED: LACTATED RINGER'S 1000 ML INJ 1,000 ML IV ONE (14:51)
[2017-12-13] MEDS ORDERED: LACTATED RINGER'S 1000 ML INJ 1,000 ML IV SCH (15:21)
[2017-12-13] MEDS ORDERED: EPINEPHrine HCL PF/SF (1:1000) 1 MG/ML AMP I-OCULAR ONE (15:50)
[2017-12-13] MEDS ORDERED: ceFAZolin 2 GM PREMIX 50 ML IV SCH (16:00)
[2017-12-13] MEDS ORDERED: MORPHINE SULFATE PF 5 MG/10 ML VIAL ONE (16:15)
[2017-12-13] MEDS ORDERED: ACETAMINOPHEN 1000 MG/100 ML 100 ML IV ONE (16:15)
[2017-12-13] MEDS ORDERED: CITRIC ACID-SODIUM CITRATE LIQ 30 ML UDC PO SCH (16:30)
[2017-12-13] MEDS ORDERED: ZOLPIDEM TARTRATE 5 MG TAB PO PRN (18:15)
[2017-12-13] MEDS ORDERED: OXYTOCIN 30 UNITS-500ML PREMIX 500 ML IV ONE ×2 (18:15)
[2017-12-13] MEDS ORDERED: SODIUM CHLORIDE 0.9% FLUSH 10 ML FLUSH IV FLUSH PRN (18:15)
[2017-12-13] MEDS ORDERED: DOCUSATE SODIUM 50 MG/SENNA 8.6 MG TAB PO PRN (18:15)
[2017-12-13] MEDS ORDERED: SIMETHICONE 80 MG CHEWABLE TAB PO PRN (18:15)
[2017-12-13] MEDS ORDERED: ONDANSETRON ODT 4 MG TAB PO PRN (18:45)
[2017-12-13] MEDS ORDERED: OXYTOCIN 30 UNITS-500ML PREMIX 500 ML ONE (19:18)
[2017-12-13] MEDS: SODIUM CHLORIDE 0.9% FLUSH 10 ML FLUSH IV FLUSH SCH (21:00)
[2017-12-13] MEDS ORDERED: EPIDURAL-DIPHENHYDRAMINE HCL 50 MG CAP PO PRN (21:45)
[2017-12-13] MEDS ORDERED: EPIDURAL-DO NOT ADMINISTER ANTICOAGULANTS PRN (21:45)
[2017-12-13] MEDS ORDERED: EPIDURAL-DIPHENHYDRAMINE HCL 50 MG/ML VIAL IV PUSH PRN (21:45)
[2017-12-13] MEDS ORDERED: EPIDURAL-NO SYSTEMIC NARCOTICS PRN (21:45)
[2017-12-13] MEDS ORDERED: EPIDURAL-NALOXONE HCL 0.4 MG/ML AMP IV PUSH PRN (21:45)
--- NOTE | 2017-12-13 22:25 | MP ---
cc: Lynn Poon MD DATE OF OPERATION: 12/13/2017 PREOPERATIVE DIAGNOSES: 1. Intrauterine at 38 weeks 2 days. 2. Preeclampsia. 3. Previous section. 4. Desires tubal ligation. POSTOPERATIVE DIAGNOSES: 1. Intrauterine at 38 weeks 2 days. 2. Preeclampsia. 3. Previous section. 4. Desires tubal ligation. PROCEDURE PERFORMED: Repeat low transverse section and a bilateral tubal ligation. ANESTHESIA: Spinal. SURGEON: Lynn Poon MD FINDINGS: Normal uterus, normal tubes. There were some adhesions around the right tube that needed to be taken down. Normal ovaries bilaterally. Male with good Apgars. COMPLICATIONS: None. COUNTS: Correct. ESTIMATED BLOOD LOSS: 600 mL FLUIDS: Crystalloids. DISPOSITION: The patient tolerated the procedure well and went to the recovery room in good condition. INDICATIONS FOR THE PROCEDURE: This is a lady who was seen in the office with extremely high blood pressures, diastolics in the 1-teens. She had 3 previous pregnancies, all complicated by preeclampsia. Her reflexes were brisk, although she had no other signs or symptoms of preeclampsia. Sent her over to the labor room, where her protein-creatinine ratio was high and she continued having high blood pressure. We decided to do a repeat at that time because of the preeclampsia DESCRIPTION OF PROCEDURE: Under an adequate level of anesthetic, she was prepped and draped for abdominal surgery. The old Pfannenstiel incision was removed and excised completely. Incision was taken down to the fascia. The fascia was taken off the rectus muscle by blunt and sharp dissection. Once this had been accomplished, the rectus muscles were gently stretched and the peritoneum entered under direct vision without incident. A bladder flap was created over the lower uterine segment and the bladder moved out of harms way. The incision over the uterus was made in a transverse manner and taken down in the midline until the uterine cavity was entered. The vertex was grasped and using suction, the was delivered with gentle fundal pressure. The hypopharynx and nasopharynx were suctioned and the cord was doubly clamped and cut and the was handed to the resuscitation team present. The placenta was removed manually. The uterus was curettaged twice with wet laps and irrigated with a moderate amount of fluid. The uterine incision was then repaired with 2-0 Vicryl in a running locking fashion, the second layer imbricating the first. Hemostasis was excellent. Attention was turned to the fallopian tubes. The left fallopian tube was identified, walked to the fimbriated end, knuckled over and using #2 plain suture, a small portion of that tube was ligated and removed sharply and turned in for pathologic diagnosis. This was repeated on the contralateral side. Hemostasis was excellent. The cul-de-sac and gutters were then cleaned of blood and debris. Irrigation was clear. At this time, the uterus was delivered back into the abdomen. The rectus muscle was reapproximated with 0 Vicryl in an interrupted fashion. The fascia was repaired from lateral to midline with 0 Vicryl bilaterally with 0 Vicryl in a running fashion. Subcu was repaired with 3-0 Vicryl. The skin was repaired with a 4-0 Monocryl in a subcuticular fashion. Steri-Strips were applied. She tolerated the procedure well and was taken to the Recovery Room in good condition. R. MD HENRY Tyler/CHIDI , 06:21 PM , 10:22 PM
[2017-12-13] MEDS: LACTATED RINGER'S 1000 ML INJ 1,000 ML IV SCH (23:14)
[2017-12-13] MEDS ORDERED: OXYTOCIN 30 UNITS-500ML PREMIX 500 ML IV PRN (23:15)
[2017-12-14 00:21] VITALS: BP 95/55; PULSE 69; RESP 18; TEMP 98
[2017-12-14] MEDS ORDERED: ACETAMINOPHEN 1000 MG/100 ML 100 ML IV SCH (01:00)
[2017-12-14 03:59] VITALS: BP 114/72; PULSE 66; RESP 18; TEMP 97.6
[2017-12-14 06:08] LABS: AUTOMATED NEUTROPHIL # 14.6 TH/MM3 (1.8-7.7); BASOPHIL % 0.3 % (0.0-2.0); EOSINOPHIL % 0.3 % (0.0-4.0); HEMATOCRIT 29.4 % (35.0-46.0); HEMOGLOBIN 9.4 GM/DL (11.6-15.3); LYMPH % 16.1 % (9.0-44.0); MEAN CELL VOLUME 82.2 FL (80.0-100.0); MEAN CORPUSCULAR HEMOGLOBIN 26.3 PG (27.0-34.0); MEAN CORPUSCULAR HGB CONC 31.9 % (32.0-36.0); MONO % 5.4 % (0.0-8.0); NEUT % 77.9 % (16.0-70.0); PLATELET COUNT 219 TH/MM3 (150-450); RED BLOOD COUNT 3.57 MIL/MM3 (4.00-5.30); RED CELL DISTRIBUTION WIDTH 19.5 % (11.6-17.2); WHITE BLOOD COUNT 18.7 TH/MM3 (4.0-11.0)
[2017-12-14] MEDS: oxyCODONE/ACETAMINOPHEN 5 MG/325 MG TAB PO PRN ×3 (07:02→19:45)
[2017-12-14] MEDS: IBUPROFEN 600 MG TAB PO PRN ×3 (07:03→19:46)
[2017-12-14] MEDS: LACTATED RINGER'S 1000 ML INJ 1,000 ML IV SCH (09:14)
--- NOTE | 2017-12-14 14:53 | HHI.OB ---
Subjective Post Operative Day: 1 Objective Vitals/I&O Vital Signs Date Time Temp Pulse Resp B/P (MAP) Pulse Ox O2 Delivery O2 Flow Rate FiO2 12/14/17 03:59 97.6 66 18 114/72 (86) 12/14/17 00:21 98.0 69 18 95/55 (68) 12/13/17 22:40 98.0 67 16 95/71 (79) 12/13/17 19:15 53 112/68 (83) 12/13/17 19:15 97.7 20 100 12/13/17 18:51 70 18 112/55 (74) 98 12/13/17 18:34 54 18 113/58 (76) 97 12/13/17 16:23 99.0 12/13/17 15:55 84 12/13/17 15:50 82 12/13/17 15:45 85 12/13/17 14:55 88 12/13/17 14:50 92 Intake & Output 12/14/17 12/14/17 07:00 19:00 Output Total 1075 ml Balance -1075 ml Output Urine Total 1075 ml Result Diagram: 12/14/17 0550 12/13/17 1310 Objective Remarks GENERAL: Well-nourished, well-developed patient. CARDIOVASCULAR: Regular rate and rhythm without murmurs, gallops, or rubs. RESPIRATORY: Breath sounds equal bilaterally. No accessory muscle use. ABDOMEN/GI: Abdomen soft, non-tender, bowel sounds present. Incision: dressing, Clean, dry and intact. Fundus: Firm, non-tender at umbilicus. GENITOURINARY: Light to moderate bleeding. EXTREMITIES: No cyanosis or edema, non-tender, without signs of DVT. Medications and IVs Current Medications Medications (Trade) Dose Ordered Sig/Radha Route Start Time Stop Time Status Last Admin Lactated Ringer's 1,000 ml @ 100 mls/hr Q10H IV 12/13/17 23:14 12/14/17 19:13 12/13/17 23:14 Oxytocin 500 ml @ 100 mls/hr UNSCH X1 PRN IV 12/13/17 23:15 12/14/17 23:14 (NS Flush) 2 ml BID IV FLUSH 12/13/17 21:00 (NS Flush) 2 ml UNSCH PRN IV FLUSH 12/13/17 18:15 (Mylicon Chew) 80 mg QID PRN PO 12/13/17 18:15 (Motrin) 600 mg Q6H PRN PO 12/13/17 18:15 12/14/17 14:02 (Percocet 5-325 Mg) 1 tab Q4H PRN PO 12/13/17 18:15 12/14/17 14:03 (Percocet 5-325 Mg) 2 tab Q4H PRN PO 12/13/17 18:15 12/14/17 07:02 (Joana-Colace) 2 tab Q12H PRN PO 12/13/17 18:15 (Ambien) 5 mg HS PRN PO 12/13/17 18:15 (M-M-R Ii Inj) 0.5 ml ONCE ONCE SQ 12/14/17 16:00 12/14/17 16:01 (Boostrix Inj) 0.5 ml ONCE ONCE IM 12/14/17 16:00 12/14/17 16:01 12/14/17 08:15 (Zofran Odt) 4 mg Q6H PRN PO 12/13/17 18:45 12/14/17 07:02 ([facility] Nursing Information) NO SYSTEMIC NARCOTICS TO BE GIVEN FO... UNSCH PRN .XX 12/13/17 21:45 12/14/17 21:44 (Narcan Inj) 0.4 mg UNSCH PRN IV PUSH 12/13/17 21:45 12/14/17 21:44 (Benadryl Inj) 25 mg Q6H PRN IV PUSH 12/13/17 21:45 12/14/17 21:44 (Benadryl) 50 mg Q6H PRN PO 12/13/17 21:45 12/14/17 21:44 ([facility] Nursing Information) ALL NURSING DEPARTMENTS UNSCH PRN .XX 12/13/17 21:45 12/14/17 21:44 Assessment/Plan Problem List: (1) delivery delivered ICD Codes: O82 - Encounter for delivery without indication Status: Acute (2) Pre-eclampsia in third trimester ICD Codes: O14.93 - Unspecified pre-eclampsia, third trimester Status: Acute (3) Anemia ICD Codes: D64.9 - Anemia, unspecified Status: Acute Assessment and Plan POD #1 pt doing well ambulating in the room without difficulty pain well managed with oral pain medication and bonding with infant routine care Discharge Planning consider dc in 1-2 days Evelyn Miguel Dec 14, 2017 14:53
[2017-12-14] MEDS ORDERED: DIPHTH/TETANUS/ACEL PERTUSSIS (BOOSTER) 0.5 ML VIAL/PFS IM ONE (16:00)
[2017-12-14] MEDS ORDERED: MEASLES, MUMPS, RUBELLA VACCINE 0.5 ML VIAL SQ ONE (16:00)
--- NOTE | 2017-12-14 16:49 | HHI.HP ---
HPI Chief Complaint 38 weeks elevated bp in office, sent to hospital for pre-eclampsia evaluation and possible repeat c section Date Seen: Dec 13, 2017 Travel History International Travel<30 Days: No Contact w/Intl Traveler<30Days: No Known Affected Area: No History of Present Illness HPI 38 weeks history of pre-eclampsia elevated bp in office previous c section Weeks Gestation: 38 Para: 4 : 3 Last Menstrual Period: Mar 19, 2017 History Past Medical History Narrative Medical anxiety anemia Obstetric History Obstetric History multiparity previous c section x 3 hx pre-eclampsia gbs + Past Surgical History Narrative Surgical c sections x 3 Family History Narrative Family History pt states unknown Social History Alcohol Use: No Tobacco Use: Yes (1/2 ppd) Substance Abuse: No Allergies-Medications (Allergen,Severity, Reaction): Coded Allergies: butorphanol (Verified Allergy, Severe, ALTERED MENTAL STATUS, HALLUCINATIONS, 12/13/17) quetiapine (Verified Allergy, Severe, Blurred Vision, hypotension, 12/13/17 ) Home Meds Active Scripts Oxycodone HCl/Acetaminophen (Oxycodone-Acetaminophen 5-325) 5 Mg-325 Mg Tablet, 1 TAB PO Q4H Y for moderate pain, #30 TAB Prov:Lynn Poon MD 12/15/17 Ibuprofen (Ibuprofen) 600 Mg Tab, 600 MG PO Q6H Y for CRAMPING, #30 TAB Prov:Lynn Poon MD 12/15/17 Reported Medications Iron Combinations (Nufera) 125-1-170 Tab, 1 TAB PO DAILY for Nutritional Supplement, TAB 0 Refills 11/16/17 Vitamin (Calna) 1 Tab Tab 09/17/16 Discontinued Reported Medications Aspirin DR (Aspirin 81) 81 Mg Tabdr, 81 MG PO DAILY, TAB 0 Refills 11/16/17 Physical Exam Vital Signs Date Time Temp Pulse Resp B/P (MAP) Pulse Ox O2 Delivery O2 Flow Rate FiO2 12/14/17 03:59 97.6 66 18 114/72 (86) 12/14/17 00:21 98.0 69 18 95/55 (68) 12/13/17 22:40 98.0 67 16 95/71 (79) 12/13/17 19:15 53 112/68 (83) 12/13/17 19:15 97.7 20 100 12/13/17 18:51 70 18 112/55 (74) 98 12/13/17 18:34 54 18 113/58 (76) 97 Narrative GENERAL: Well-nourished, well-developed patient. SKIN: Warm and dry. HEAD: Normocephalic and atraumatic. EYES: No scleral icterus. No injection or drainage. ENT: No nasal drainage noted. Mucous membranes pink. Airway patent. NECK: Supple, trachea midline. No JVD. CARDIOVASCULAR: Regular rate and rhythm without murmurs, gallops, or rubs. RESPIRATORY: Breath sounds equal bilaterally. No accessory muscle use. ABDOMEN/GI: Abdomen soft, non-tender, bowel sounds present, no rebound, no guarding Gravid to term GENITOURINARY: External Genitalia: intact and normal in appearance EXTREMITIES: No cyanosis or edema. BACK: Nontender without obvious deformity. No CVA tenderness. NEUROLOGICAL: Awake and alert. Motor and sensory grossly within normal limits. Five out of 5 muscle strength in all muscle groups. Normal speech. seen by dr Cleve Rivera VTE Risk Assessment Florianrini VTE Risk Assessment: No/Low Risk (score <= 1) Caprini Risk Assessment Model Point Value = 1 Point Value = 2 Point Value = 3 Point Value = 5 Age 41-60 Minor surgery BMI > 25 kg/m2 Swollen legs Varicose veins or History of unexplained or recurrent spontaneous Oral contraceptives or hormone replacement Sepsis (< 1 month) Serious lung disease, including pneumonia (< 1 month) Abnormal pulmonary function Acute myocardial infarction Congestive heart failure (< 1 month) History of inflammatory bowel disease Medical patient at bed rest Age 61-74 Arthroscopic surgery Major open surgery (> 45 min) Laparoscopic surgery (> 45 min) Malignancy Confined to bed (> 72 hours) Immobilizing plaster cast Central venous access Age >= 75 History of VTE Family history of VTE Factor V Leiden Prothrombin [id number] Lupus anticoagulant Anticardiolipin antibodies Elevated serum homocysteine Heparin-induced thrombocytopenia Other congenital or acquired thrombophilia Stroke (< 1 month) Elective arthroplasty Hip, pelvis, or leg fracture Acute spinal cord injury (< 1 month) Prophylaxis Regimen Total Risk Factor Score Risk Level Prophylaxis Regimen 0-1 Low Early ambulation 2 Moderate Order ONE of the following: *Sequential Compression Device (SCD) *Heparin 5000 units SQ BID 3-4 Higher Order ONE of the following medications: *Heparin 5000 units SQ TID *Enoxaparin/Lovenox 40 mg SQ daily (WT < 150 kg, CrCl > 30 mL/min) *Enoxaparin/Lovenox 30 mg SQ daily (WT < 150 kg, CrCl > 10-29 mL/min) *Enoxaparin/Lovenox 30 mg SQ BID (WT < 150 kg, CrCl > 30 mL/min) AND/OR *Sequential Compression Device (SCD) 5 or more Highest Order ONE of the following medications: *Heparin 5000 units SQ TID (Preferred with Epidurals) *Enoxaparin/Lovenox 40 mg SQ daily (WT < 150 kg, CrCl > 30 mL/min) *Enoxaparin/Lovenox 30 mg SQ daily (WT < 150 kg, CrCl > 10-29 mL/min) *Enoxaparin/Lovenox 30 mg SQ BID (WT < 150 kg, CrCl > 30 mL/min) AND *Sequential Compression Device (SCD) Data Data Orders Orders Oxytocin 30 Units-500ml Premix (Pitocin (12/13/17 18:15) Vital Signs (Adult) Q4HX24,Q12H (12/13/17 18:14) Activity Bed Rest (12/13/17 18:14) ^ Discontinue (12/14/17 18:14) Remove Dressing (12/14/17 18:14) ^ Rhogam (12/13/17 18:14) Lactated Ringer's 1000 Ml Inj (Lr 1000 M (12/13/17 23:14) Oxytocin 30 Units-500ml Premix (Pitocin (12/13/17 18:15) Oxytocin 30 Units-500ml Premix (Pitocin (12/13/17 23:15) Sodium Chloride 0.9% Flush (Ns Flush) (12/13/17 21:00) Sodium Chloride 0.9% Flush (Ns Flush) (12/13/17 18:15) Simethicone Chew (Mylicon Chew) (12/13/17 18:15) Ibuprofen (Motrin) (12/13/17 18:15) Oxycodone-Acetamin 5-325 Mg (Percocet (12/13/17 18:15) Oxycodone-Acetamin 5-325 Mg (Percocet (12/13/17 18:15) Docusate Sodium-Senna (Joana-Colace) (12/13/17 18:15) Zolpidem (Ambien) (12/13/17 18:15) [place]-Yqrhj-Ubnxzwd Inj (M-M-R Ii Inj) (12/14/17 16:00) Gtvh-Iyd-Eypvgr (Booster) Inj (Boostrix (12/14/17 16:00) Complete Blood Count With Diff (12/14/17 06:00) Remove Urinary Catheter .ONCE (12/14/17 18:14) Ondansetron Odt (Zofran Odt) (12/13/17 18:45) Cefazolin Inj (Ancef Inj) (12/14/17 00:00) Oxytocin 30 Units-500ml Premix (Pitocin (12/13/17 19:18) Ob/Psych Drug Screen, Urine (12/13/17 19:27) Diet Liquid (12/13/17 Dinner) [place] [facility] [place] (12/13/17 21:45) Naloxone Inj (Narcan Inj) (12/13/17 21:45) Diphenhydramine Inj (Benadryl Inj) (12/13/17 21:45) Diphenhydramine (Benadryl) (12/13/17 21:45) Nursing Information [place] (12/13/17 21:45) Acetaminophen 1000 Mg/100 Ml (Ofirmev 10 (12/14/17 01:00) Diet Regular Basic (12/14/17 Lunch) Group B Strep: Positive Labs Laboratory Tests Test 12/14/17 05:50 White Blood Count 18.7 Red Blood Count 3.57 Hemoglobin 9.4 Hematocrit 29.4 Mean Corpuscular Volume 82.2 Mean Corpuscular Hemoglobin 26.3 Mean Corpuscular Hemoglobin Concent 31.9 Red Cell Distribution Width 19.5 Platelet Count 219 Mean Platelet Volume 9.0 Neutrophils (%) (Auto) 77.9 Lymphocytes (%) (Auto) 16.1 Monocytes (%) (Auto) 5.4 Eosinophils (%) (Auto) 0.3 Basophils (%) (Auto) 0.3 Neutrophils # (Auto) 14.6 Lymphocytes # (Auto) 3.0 Monocytes # (Auto) 1.0 Eosinophils # (Auto) 0.0 Basophils # (Auto) 0.0 CBC Comment DIFF FINAL Differential Comment Assessment/Plan Problem List: (1) delivery delivered ICD Codes: O82 - Encounter for delivery without indication Status: Acute (2) Pre-eclampsia in third trimester ICD Codes: O14.93 - Unspecified pre-eclampsia, third trimester Status: Acute (3) Anemia ICD Codes: D64.9 - Anemia, unspecified Status: Acute Assessment and Plan POD #1 pt doing well ambulating in the room without difficulty pain well managed with oral pain medication and bonding with routine care Discharge Planning consider dc in 1-2 days Evelyn Miguel Dec 14, 2017 16:49
[2017-12-14 20:00] VITALS: BP 118/76; PULSE 82; RESP 18; TEMP 98.3; O2SAT 97
[2017-12-14] MEDS: SODIUM CHLORIDE 0.9% FLUSH 10 ML FLUSH IV FLUSH SCH (21:00)
[2017-12-15 02:30] VITALS: BP 119/68; PULSE 80; RESP 16; TEMP 97.9; O2SAT 96
[2017-12-15] MEDS: IBUPROFEN 600 MG TAB PO PRN ×2 (06:21→11:32)
[2017-12-15] MEDS: oxyCODONE/ACETAMINOPHEN 5 MG/325 MG TAB PO PRN ×2 (06:21→11:32)
[2017-12-15 08:28] VITALS: RESP 16
[2017-12-15] MEDS ORDERED: IBUP-232 PO (08:28)
[2017-12-15] MEDS ORDERED: OXYC1TAB63 PO (08:28)
[2017-12-15] MEDS: SODIUM CHLORIDE 0.9% FLUSH 10 ML FLUSH IV FLUSH SCH (09:00)
--- NOTE | 2017-12-15 09:43 | HHI.OB ---
Subjective Post Operative Day: 2 Objective Vitals/I&O Vital Signs Date Time Temp Pulse Resp B/P (MAP) Pulse Ox O2 Delivery O2 Flow Rate FiO2 12/15/17 08:28 16 12/15/17 02:30 97.9 80 16 119/68 (85) 96 12/15/17 02:30 80 16 96 12/15/17 02:30 97.9 12/15/17 02:30 119/68 (85) 12/14/17 20:00 98.3 82 18 118/76 (90) 97 Result Diagram: 12/14/17 0550 12/13/17 1310 Objective Remarks GENERAL: Well-nourished, well-developed patient. CARDIOVASCULAR: Regular rate and rhythm without murmurs, gallops, or rubs. RESPIRATORY: Breath sounds equal bilaterally. No accessory muscle use. ABDOMEN/GI: Abdomen soft, non-tender, bowel sounds present. Incision: dressing, Clean, dry and intact. Fundus: Firm, non-tender at umbilicus. GENITOURINARY: Light to moderate bleeding. EXTREMITIES: No cyanosis or edema, non-tender, without signs of DVT. Medications and IVs Current Medications Medications (Trade) Dose Ordered Sig/Radha Route Start Time Stop Time Status Last Admin (NS Flush) 2 ml BID IV FLUSH 12/13/17 21:00 (NS Flush) 2 ml UNSCH PRN IV FLUSH 12/13/17 18:15 (Mylicon Chew) 80 mg QID PRN PO 12/13/17 18:15 (Motrin) 600 mg Q6H PRN PO 12/13/17 18:15 12/15/17 06:21 (Percocet 5-325 Mg) 1 tab Q4H PRN PO 12/13/17 18:15 12/14/17 14:03 (Percocet 5-325 Mg) 2 tab Q4H PRN PO 12/13/17 18:15 12/15/17 06:21 (Joana-Colace) 2 tab Q12H PRN PO 12/13/17 18:15 12/15/17 08:27 (Ambien) 5 mg HS PRN PO 12/13/17 18:15 (Zofran Odt) 4 mg Q6H PRN PO 12/13/17 18:45 12/14/17 07:02 Assessment/Plan Problem List: (1) delivery delivered ICD Codes: O82 - Encounter for delivery without indication Status: Acute (2) Pre-eclampsia in third trimester ICD Codes: O14.93 - Unspecified pre-eclampsia, third trimester Status: Acute (3) Anemia ICD Codes: D64.9 - Anemia, unspecified Status: Acute Assessment and Plan POD #2 pt doing well pain well managed with oral pain medication pt to shower today and remove dressing pt will start daily oral iron once she is no longer taking pain medication routine care Discharge Planning dc home today Evelyn Miguel Dec 15, 2017 09:43
--- NOTE | 2017-12-15 09:56 | HHI.DCPOC ---
Discharge Care Plan Diagnosis: (1) delivery delivered Your Health Problems Are: delivery Report Symptoms to Your Doctor -Temperature above 100.5 degrees -Redness, of incision or excessive or foul smelling drainage -Unusual pain or calf pain -Increased vaginal bleeding -Painful or difficulty urinating -Feelings of extreme sadness or anxiety after 2 weeks Goals to Promote Your Health * To prevent worsening of your condition and complications * To maintain your health at the optimal level Directions to Meet Your Goals Take your medications as prescribed Follow your dietary instruction Follow activity as directed Ensure plenty of rest for recovery Drink fluids for hydration Keep your appointments as scheduled Take your immunizations and boosters as scheduled If your symptoms worsen call your PCP, if no PCP go to Urgent Care Center or Emergency Room Smoking is Dangerous to Your Health. Avoid second hand smoke Call the 24-hour crisis hotline for domestic abuse at Evelyn Miguel Dec 15, 2017 09:56
--- NOTE | 2017-12-15 10:01 | HHI.DS ---
Admission Date Dec 13, 2017 at 14:43 Discharge Date: Dec 15, 2017 Admitting Diagnosis term pre-eclampsia previous c section desires sterilization Diagnosis: (1) Pre-eclampsia in third trimester ICD Codes: O14.93 - Unspecified pre-eclampsia, third trimester Status: Acute (2) Anemia ICD Codes: D64.9 - Anemia, unspecified Status: Acute (3) Previous section ICD Codes: Z98.891 - History of uterine scar from previous surgery Status: Acute : Repeat Reason: with tubal ligation bilateral Brief History 38 weeks history of pre-eclampsia elevated bp in office previous c section gbs + Hospital Course repeat c section with bilateral tubal ligation routine care Pt Condition on Discharge: Good Discharge Disposition: Discharge Home Discharge Instructions Diet Instructions: As Tolerated, No Restrictions Additional Diet Instructions: Drink at least 8 - 16 oz bottles of water a day Activities You Can Perform: Shower Only-No Bath Activities to Avoid: Prolonged Standing, Strenuous Activity, Sexual Activity Additional Activity Instruc.: No driving until off pain medications Do not lift anything heavier than your baby in an carrier Follow up Referrals: [facility] HELPER - 1 Week @ [facility] New Medications: Ibuprofen (Ibuprofen) 600 Mg Tab 600 MG PO Q6H PRN for CRAMPING, #30 TAB Oxycodone HCl/Acetaminophen (Oxycodone-Acetaminophen 5-325) 5 Mg-325 Mg Tablet 1 TAB PO Q4H PRN for moderate pain, #30 TAB Continued Medications: Vitamin (Calna) 1 Tab Tab Discontinued Medications: Iron Combinations (Nufera) 125-1-170 Tab 1 TAB PO DAILY for Nutritional Supplement, TAB 0 Refills Evelyn Miguel Dec 15, 2017 10:01
== END 2017-12-15 14:48 | disposition home or self-care (01) | DRG 766 ==
LOC: HOBED 12:30 → H2EB 14:43 → H1EA 19:19
PROVIDERS: ADMIT Obstetrics & Gynecology; ATTEND Obstetrics & Gynecology
PROC: 10D00Z1 Extraction of Products of Conception, Low, Open Approach (ICD-10-PCS; principal; 2017-12-13)
PROC: 0UB70ZZ Excision of Bilateral Fallopian Tubes, Open Approach (ICD-10-PCS; 2017-12-13)
DX: O14.94 Unspecified pre-eclampsia, complicating childbirth (principal); D64.9 Anemia, unspecified; O34.219 Maternal care for unspecified type scar from previous cesarean delivery; O99.02 Anemia complicating childbirth; O99.334 Smoking (tobacco) complicating childbirth; O99.824 Streptococcus B carrier state complicating childbirth; F17.210 Nicotine dependence, cigarettes, uncomplicated; Z30.2 Encounter for sterilization; Z3A.38 38 weeks gestation of pregnancy; Z37.0 Single live birth
CPT/HCPCS: 36415; 59025; 80053; 80307; 82570; 84156; 84550; 85025; 85027; 86850; 86900; 86901; 88302; 90715; G0481; J0131; J0171; J0690; J1100; J2274; J2370; J2405; J2590; J3010; J7120